=== PATIENT | male | born 1935 | race Caucasian/White ===

== ENCOUNTER 2017-05-28 11:14 | Inpatient (IN) ==
[2017-05-28] MEDS ORDERED: TYLENOL PO PRN (12:46)
[2017-05-28] MEDS ORDERED: LASIX IV ONE (12:46)
[2017-05-28] MEDS ORDERED: ZOFRAN IV PRN (12:46)
[2017-05-28] MEDS: LOVENOX SUBQ SCH (13:35)
--- NOTE | 2017-05-28 13:50 | Diag Imaging Result Doc PS360 ---
EXAM: CHEST-2 VIEWS INDICATION: CHF TECHNIQUE: 2 views COMPARISON: 01/30/2015 FINDINGS: There is evidence of prior granulomatous disease, stable. There is interstitial thickening throughout both lungs and especially at the lung apices that is stable, most compatible with fibrosis. There is stable blunting of the left costophrenic angle suggesting chronic pleural thickening. There is probably a component of COPD as well but stable. Cardiac silhouette is borderline prominent but stable. IMPRESSION: Stable chronic appearing interstitial thickening and biapical fibrosis and likely COPD. Electronically signed by Pranav Caldwell 05/28/2017 1:48 PM
[2017-05-28 13:51] LABS: HEMATOCRIT 32.9 % (42.0-52.0); HEMOGLOBIN 10.8 g/dL (14.0-18.0); MCH 33.5 PG (27-31); MCHC 32.8 g/dL (33-37); MCV 102.2 FL (81-99); MPV 9.7 FL (7.4-10.4); RBC 3.22 XMIL (4.7-6.1)
[2017-05-28] MEDS: DUONEB (A & A) INH SCH ×2 (16:24→19:09)
--- NOTE | 2017-05-28 18:19 | ECHO REPORT ---
ORDER DATE: 05/28/2017 MEASUREMENTS: 1. Left ventricular end-diastolic diameter 5.3. 2. End systolic diameter 3.3. 3. Posterior wall thickness 1. 4. Septal thickness 1.1. 5. Left atrium 5.2. 6. Aortic root 3.4 SUMMARY: 1. Fair quality study. 2. Aortic valve is trileaflet and opens normally on 2-dimensional images. There is mild mitral annular calcification. Mild mitral regurgitation is demonstrated. Tricuspid and pulmonic valves are without structural abnormality with mild to moderate tricuspid regurgitation and trace pulmonic insufficiency. Estimated systolic PA pressure by Doppler is 65 mmHg. The aortic root is normal size. 3. Normal left ventricular dimensions demonstrated. Estimated left ejection fraction appears to be at least 65%. There is abnormal septal motion, probably related to underlying interventricular conduction abnormality. Moderate biatrial enlargement is demonstrated. The right ventricle is of normal size with grossly preserved right ventricular systolic function. 4. No pericardial effusion. 5. Appearance of inferior vena cava suggests normal central venous pressure. CONCLUSIONS: 1. Mild mitral regurgitation. 2. Mild to moderate tricuspid regurgitation with pulmonary hypertension suggested by Doppler and estimated systolic PA pressure 65 mmHg. 3. Estimated left ejection fraction at least 65%. 4. Moderate biatrial enlargement. cc: MD Samson Hubbard MD
[2017-05-28] MEDS: PLETAL PO SCH (20:59)
[2017-05-28] MEDS ORDERED: SPIRIVA INH SCH (21:00)
[2017-05-29] MEDS: DUONEB (A & A) INH SCH ×4 (03:50→20:08)
[2017-05-29 05:40] LABS: CALCIUM 8.7 mg/dL (8.8-10.2)
[2017-05-29] MEDS ORDERED: LASIX IV ONE (07:57)
--- NOTE | 2017-05-29 08:26 | PROGRESS NOTE ---
DATE: 05/29/2017 SUBJECTIVE: Mr. Rosen was admitted to [facility] with acute on chronic congestive heart failure secondary to diastolic dysfunction. His echocardiogram demonstrated normal LV function with an EF of 65%. Mild mitral regurgitation and diastolic dysfunction. He is breathing much more comfortably. This morning, he put out nearly 2 L of fluid after 1 dosage of Lasix. He is maintaining O2 saturations of 96-99% on room air. He still has a nocturnal cough but less peripheral edema. OBJECTIVE: Vital signs: Temperature 98.3 degrees, pulse 90, respiratory rate 26, BP 1129/70. Cardiovascular: Regular rate and rhythm. Lungs: Distant breath sounds with increased period of expiration. There are fine crackles in the bases bilaterally. Abdomen: Soft, nontender, with active bowel sounds. Extremities: Trace pitting edema. LABORATORY DATA: BMP demonstrated the following: Sodium 144, potassium 4.0, chloride 104, BUN 24, creatinine 1.3 and glucose of 115. Cardiac enzymes were normal. ASSESSMENT AND PLAN: 1. Acute on chronic congestive heart failure secondary to diastolic dysfunction. We will continue a salt and fluid restricted diet. I will give him another 1 time dosage of Lasix 40 mg IV daily. We will arrange for continuous O2 saturation monitoring while sleeping tonight to make sure that he is not desaturating while sleeping, where he would potentially benefit from nocturnal home oxygen. 2. Chronic chronic obstructive pulmonary disease. We will continue Spiriva hand inhalers and we will make arrangements for him to have a nebulizer machine as well as DuoNeb nebulizer treatments at home. cc: Samson Gutierrez MD
[2017-05-29] MEDS: KLOR-CON PO SCH (08:59)
[2017-05-29] MEDS: PRAVACHOL PO SCH (08:59)
[2017-05-29] MEDS: PLETAL PO SCH ×2 (09:00→20:53)
[2017-05-29] MEDS: FLOMAX PO SCH (09:00)
[2017-05-29] MEDS ORDERED: LOPRESSOR PO SCH (09:00)
[2017-05-29] MEDS: ZYLOPRIM PO SCH (09:01)
[2017-05-29] MEDS: LOVENOX SUBQ SCH (12:47)
--- NOTE | 2017-05-29 13:31 | Diag Imaging Result Doc PS360 ---
ANGIOGRAM/AORTA W/RUNOFF - 05/29/2017 INDICATION: claudication TECHNIQUE: Axial CT images were obtained after administering intravenous contrast. Three-dimensional angiographic images were generated. A CT dose reduction protocol was used. COMPARISON: None FINDINGS: There is some interstitial infiltrate/edema in the lung bases. There is also a small left pleural effusion. There is cardiomegaly. There is moderate COPD. There is reflux of contrast into the IVC and hepatic veins consistent with cardiac insufficiency. There is moderate vascular disease of the abdominal aorta with calcification but no significant stenosis or aneurysm. The renal and mesenteric arteries are grossly patent. On the right side, there is some mild to moderate stenosis of about 50% at the external iliac artery. There is mild stenosis of less than 30% at the common femoral artery. Most of the superficial femoral artery is patent. However there is severe stenosis of the popliteal artery with about 70% narrowing. This is at the proximal popliteal artery. There is a three-vessel runoff to the right foot.There is severe degeneration at the right first metatarsophalangeal joint. On the left side, there is mild stenosis of about 40% at the common and external iliac arteries. The common and deep femoral arteries are grossly patent. At the distal superficial femoral artery, there is a focal critical stenosis of about 90% narrowing. There is also moderately severe stenosis throughout the popliteal artery with about 70% narrowing. There is a three-vessel runoff to the left foot. There is moderate bilateral pedal edema. IMPRESSION: 1. Severe peripheral artery disease, worst at the distal left superficial femoral artery and both popliteal arteries. There is also some mild inflow disease. 2. Cardiomegaly, pulmonary edema, COPD, trace left pleural effusion. Electronically signed by Logan Hoang 05/29/2017 1:29 PM
[2017-05-30] MEDS: DUONEB (A & A) INH SCH (05:20)
[2017-05-30 05:54] LABS: CALCIUM 8.8 mg/dL (8.8-10.2); POTASSIUM 3.9 mmol/L (3.5-5.1)
[2017-05-30] MEDS ORDERED: PREVNAR 13 IM ONE (07:31)
[2017-05-30] MEDS ORDERED: LASIX PO PRN (07:34)
[2017-05-30 08:23] VITALS: BP 129/53
[2017-05-30] MEDS ORDERED: CARDIZEM PO SCH (09:00)
[2017-05-30] MEDS: ZYLOPRIM PO SCH (09:43)
[2017-05-30] MEDS: FLOMAX PO SCH (09:43)
[2017-05-30] MEDS: PRAVACHOL PO SCH (09:43)
[2017-05-30] MEDS: KLOR-CON PO SCH (09:43)
[2017-05-30] MEDS: PLETAL PO SCH (09:43)
[2017-05-30] MEDS ORDERED: ATROVENT NEB INH SCH (15:30)
--- NOTE | 2017-05-30 17:13 | DISCHARGE SUMMARY ---
ADMISSION DATE: 05/28/2017 DISCHARGE DATE: 05/30/2017 DISCHARGE DIAGNOSES: 1. Acute on chronic congestive heart failure secondary to diastolic congestive heart failure. 2. Acute chronic obstructive pulmonary disease exacerbation. 3. Nicotine dependence with nicotine induced disorder. 4. Chronic renal disease stage 2. 5. Intermittent claudication of the lower extremities secondary to peripheral arterial disease. 6. Mixed hyperlipidemia. 7. Benign prostatic hypertrophy. DISCHARGE INSTRUCTIONS: 1. Return to clinic in 1 week to see me, Dr. Bright Gutierrez, in anticipation of a transition of care visit. 2. Activity as tolerated. 3. Healthy heart diet. MEDICATIONS: Allopurinol 300 mg daily. Pletal 100 mg b.i.d. Diltiazem 30 mg p.o. t.i.d. Lasix 40 mg daily on a p.r.n. basis if he gains 2 pounds in a period of 24 hours. Ipratropium nebulized t.i.d. KCl 20 mEq daily if he takes a Lasix. Flomax 0.4 mg daily. Spiriva 1 inhalation daily. Lasix 40 mg daily if he gains 2 pounds in 24 hours. DISCHARGE PHYSICAL EXAMINATION: This is a well-developed, well-nourished, 81-year-old, gentleman in no apparent distress. He is afebrile. Pulse 105. Respiratory rate 18, BP 135/64. CV: Tachycardic, regular S1, S2. Lungs: Distant breath sounds with increased period of expiration. No wheezing was appreciated. Abdomen: Soft, nontender, with active bowel sounds. Extremities: Trace ankle edema. Mr. Pranav Rosen was admitted to [facility] with acute on chronic congestive heart failure secondary to diastolic dysfunction. His initial proBNP was 3971. The patient was placed on a salt and fluid restricted diet and was diuresed with Lasix. An echocardiogram demonstrated normal LV function with an EF of 65%. He had moderate biatrial enlargement. He had mild mitral regurgitation. The patient responded to salt and fluid restrictions as well as diuresis with Lasix. Because metoprolol can cause bronchospasm, I switched him to Cardizem 30 mg t.i.d. to improve compliance of his cardiac muscle. We did perform an overnight sat monitor and he never had O2 sats below 90%. Given his acute chronic obstructive pulmonary disease exacerbation we continued the Spiriva but added DuoNeb nebulizer treatments. The DuoNeb nebulizer treatments made him extremely jittery and caused tachycardia. We changed his nebulizer treatments to ipratropium nebulized t.i.d. in the hopes it would continue to help his breathing without causing anxiety. He was also administered a Prevnar vaccination on discharge. He will continue a salt and fluid restricted diet. I asked him to weigh daily. He will take the Lasix only if he gains 2 pounds in 24 hours. He does have a history of intermittent claudication secondary to peripheral arterial disease. He has been taking Pletal [address] Ramos had held his diuretics in order to improve his creatinine. His creatinine dropped from 1.7-1.3. A CT angiogram of the aorta with runoff demonstrated severe peripheral artery disease worst at the distal left superficial femoral artery and both popliteal arteries. Dr. Ramos saw him and felt that he would be a candidate for an atherectomy as an outpatient. Mr. Rosen will follow up with Dr. Ramos in a week in order to schedule that procedure. He does have a longstanding history of chronic renal insufficiency. His creatinine typically runs from 1.2-1.4. His creatinine jumped to 1.[address] runoff. We will recheck a BMP next week. I am hoping that by only giving Lasix on an as-needed basis that we will not exacerbate his underlying renal disease. Having reached maximum hospital benefit, the patient was discharged in stable condition. cc: Samson Gutierrez MD
== END 2017-05-30 10:52 | disposition home or self-care (01) ==
LOC: DIRADM 11:14 → 3S 12:30
PROVIDERS: ADMIT Internal Medicine; ATTEND Internal Medicine

== ENCOUNTER 2017-06-04 15:08 | Inpatient (IN) ==
[2017-06-04] MEDS ORDERED: TYLENOL PO PRN (16:40)
[2017-06-04] MEDS ORDERED: KLOR-CON PO PRN (16:40)
[2017-06-04] MEDS ORDERED: ZOFRAN IV PRN (16:40)
--- NOTE | 2017-06-04 16:57 | Diag Imaging Result Doc PS360 ---
EXAM: CHEST-PORTABLE INDICATION: CHF TECHNIQUE: One view COMPARISON: 05/28/2017 FINDINGS: The bilateral interstitial thickening seen previously is approximately stable most compatible with fibrosis. There may also be a component of mild interstitial edema. There is no new consolidation. Cardiac silhouette is stable. IMPRESSION: Essentially stable chest. Electronically signed by Pranav Caldwell 06/04/2017 4:55 PM
[2017-06-04] MEDS ORDERED: CARDIZEM PO SCH (17:00)
[2017-06-04] MEDS: LEVAQUIN 250 MG/D5W 250 MG/50 ML IVPB IV SCH (17:43)
[2017-06-04] MEDS: LOVENOX SUBQ SCH (17:43)
[2017-06-04 17:47] LABS: MANUAL DIFF NEEDED? NO
[2017-06-04 17:50] LABS: BASO% 0.1 % (0.0-0.8); EOS# 0.01 X1000 (0.0-0.7); EOS% 0.1 % (0.0-10.0); HEMATOCRIT 29.7 % (42.0-52.0); HEMOGLOBIN 9.9 g/dL (14.0-18.0); IMM GRAN# 0.04 X1000 (0.0-0.04); IMM GRAN% 0.5 % (0.0-0.5); LYMPH# 0.53 X1000 (1.2-3.4); LYMPH% 6.7 % (20.5-51.1); MCH 32.7 PG (27-31); MCHC 33.3 g/dL (33-37); MONO# 1.09 X1000 (0.11-0.59); MONO% 13.7 % (1.7-9.3); MPV 9.7 FL (7.4-10.4); NEUT% 78.9 % (42.2-75.2); PLT 295 X1000 (130-400); RBC 3.03 XMIL (4.7-6.1)
--- NOTE | 2017-06-04 17:53 | Diag Imaging Result Doc PS360 ---
EXAM: HEAD W/O CONTRAST TECHNIQUE: Dose reduction protocol was used. INDICATION: AMS COMPARISON: None. FINDINGS: There is patchy low attenuation in the periventricular and subcortical white matter suggesting mild to moderate microangiopathy. There is no definite acute infarct given the limited sensitivity of CT versus MRI. There is no discrete intracranial mass, mass effect, or intracranial hemorrhage. There is subtotal opacification of the left sphenoid sinus and mild right maxillary sinus mucosal thickening. Surrounding soft tissues and bony structures are essentially unremarkable, otherwise. IMPRESSION: Mild to moderate chronic appearing white matter changes. No evidence of acute intracranial pathology. Electronically signed by Pranav Caldwell 06/04/2017 5:51 PM
[2017-06-04 18:10] LABS: ALBUMIN 3.5 g/dL (3.5-5.0); CALCIUM 9.2 mg/dL (8.8-10.2); POTASSIUM 3.6 mmol/L (3.5-5.1); TOTAL BILIRUBIN 0.55 mg/dL (0.20-1.00); TOTAL PROTEIN 7.8 g/dL (6.3-8.3); URIC ACID 4.8 mg/dL (3.4-7.0)
[2017-06-04] MEDS ORDERED: LASIX IV ONE (19:22)
[2017-06-04] MEDS ORDERED: KLOR-CON PO ONE (19:27)
[2017-06-04 20:08] LABS: URINE CULTURE NEEDED? NO; URINE MICRO REVIEW NEEDED? NO; URINE SOURCE CLEAN CATCH
[2017-06-04 20:11] LABS: BILIRUBIN URINE NEGATIVE (NEGATIVE); BLOOD URINE NEGATIVE (NEGATIVE); COLOR YELLOW; GLUCOSE URINE NEGATIVE (NEGATIVE); LEUKOCYTES URINE NEGATIVE (NEGATIVE); NITRITE URINE NEGATIVE (NEGATIVE); PH URINE 5.5; PROTEIN URINE TRACE mg/dL (NEGATIVE); SP GRAVITY URINE 1.012; TURBIDITY URINE CLEAR (CLEAR); UROBILINOGEN URINE NORMAL (NORMAL)
[2017-06-04 20:12] LABS: UR EPITHELIAL CELLS <10 /HPF (<10); URINE BACTERIA NEGATIVE /HPF; URINE RBC <10 /HPF (<10); URINE WBC <10 /HPF (<10)
[2017-06-04] MEDS ORDERED: CARDIZEM PO ONE (21:00)
[2017-06-04] MEDS: PLETAL PO SCH (21:02)
[2017-06-05] MEDS ORDERED: CARDIZEM PO ONE (04:25)
--- NOTE | 2017-06-05 05:35 | EKG Report ---
Test Performed on : 06/05/2017 04:21:51 AM Test Reason : Elevated heart rate Blood Pressure : / mmHG Vent. Rate : 138 BPM Atrial Rate : 138 BPM P-R Int : 000 ms QRS Dur : 124 ms QT Int : 356 ms P-R-T Axes : 000 032 209 degrees QTc Int : 539 ms Wide QRS tachycardia. Anterior infarct , age undetermined ST \T\ T wave abnormality, consider inferior ischemia Abnormal ECG When compared with ECG of 04-JUN-2017 18:59, (Unconfirmed) Wide QRS tachycardia. has replaced Sinus rhythm. Confirmed by Matt MANDEL, MJoel Novoa ([id number]) on 06/05/2017 1:07:25 PM
--- NOTE | 2017-06-05 05:36 | EKG Report ---
Test Performed on : 06/04/2017 5:55:49 PM Test Reason : palpitations Blood Pressure : / mmHG Vent. Rate : 118 BPM Atrial Rate : 118 BPM P-R Int : 168 ms QRS Dur : 130 ms QT Int : 374 ms P-R-T Axes : 000 -57 090 degrees QTc Int : 524 ms Sinus tachycardia. Left axis deviation Left bundle branch block Abnormal ECG When compared with ECG of 30-JAN-2011 08:36, Sinus rhythm. has replaced Atrial fibrillation. Confirmed by Samson Gutierrez MD ([id number]) on 06/05/2017 1:07:06 PM
[2017-06-05 06:16] LABS: CALCIUM 8.9 mg/dL (8.8-10.2); POTASSIUM 3.4 mmol/L (3.5-5.1)
[2017-06-05] MEDS ORDERED: NS 1,000 ML IV SCH (08:34)
[2017-06-05] MEDS ORDERED: CARDIZEM PO SCH (09:00)
--- NOTE | 2017-06-05 09:05 | PROGRESS NOTE ---
DATE: 06/05/2017 SUBJECTIVE: Ms. Rosen has a long-standing history of severe COPD and chronic congestive heart failure secondary to diastolic dysfunction. He presented to my office with dyspnea, worsening shortness of breath with exertion, and peripheral edema. He had been taking extra Lasix without improvement in his swelling. The patient is still with complaint of mild dyspnea. He has been tachycardic throughout the night. He has been in a sinus tachycardia with PACs. We have not seen any recurrence of atrial flutter or atrial fibrillation. He does have a history of paroxysmal atrial fibrillation. He denies any chest pain, tightness, or pressure in his chest, or other anginal equivalents. His initial CPK was 48, his troponin was 0.01. His EKG showed T-wave inversion inferiorly. His chest x-ray showed no evidence of interstitial edema and significant pulmonary fibrosis. He does have a history of chronic renal insufficiency. His baseline creatinine is in the range of 1.2-1.3. His creatinine was 1.6 this morning. He is not voiding very much. He has had 820 mL of urine output since admission. OBJECTIVE: Vital Signs: Temperature 99.4 degrees, pulse 108, respiratory rate 20, BP 134/60. General: He is awake and easily arousable. He is oriented to name, place, and time. CV: Tachycardic, regular S1 and S2. Lungs: Scattered end-expiratory wheezing with forced expiration. He has distant breath sounds with increased period of expiration. Abdomen: Soft, nontender, with active bowel sounds. Extremities: There is 2+ pitting edema in the lower extremities bilaterally. ASSESSMENT AND PLAN: 1. Acute on chronic renal failure. He has a baseline creatinine of 1.2-1.3. I am going to check an ultrasound of the kidneys to make sure there is no evidence of hydronephrosis. I will cautiously give him fluid in that his chest x-ray does not show any overt heart failure at this time. We will consult Dr. Bates to see him in consultation. 2. Acute chronic obstructive pulmonary disease exacerbation. We will treat him with supplemental O2, Spiriva hand inhaler, intravenous Solu-Medrol, and we will use ipratropium nebulizers 3 times daily. 3. Persistent tachycardia. He has had a Myoview GXT in the past. We will check serial cardiac enzymes. I am going to consult cardiology. We will recheck electrolytes and thyroid studies today. Given the dyspnea, we will probably do a V/Q scan to make sure that there has been no blood clot to the lungs. cc: Samson Gutierrez MD
[2017-06-05] MEDS: PLETAL PO SCH ×2 (09:07→20:31)
[2017-06-05] MEDS: FLOMAX PO SCH (09:07)
[2017-06-05] MEDS: SOLU-MEDROL IV SCH ×2 (09:07→17:07)
[2017-06-05] MEDS: ZYLOPRIM PO SCH (09:07)
--- NOTE | 2017-06-05 10:42 | EKG Report ---
Test Performed on : 06/04/2017 6:59:59 PM Test Reason : CIC5 Blood Pressure : / mmHG Vent. Rate : 119 BPM Atrial Rate : 119 BPM P-R Int : 136 ms QRS Dur : 128 ms QT Int : 400 ms P-R-T Axes : 000 035 098 degrees QTc Int : 562 ms Sinus tachycardia. Nonspecific intraventricular block Abnormal QRS-T angle, consider primary T wave abnormality Abnormal ECG When compared with ECG of 04-JUN-2017 17:55, (Unconfirmed) QRS axis shifted right QRS voltage has decreased Non-specific change in ST segment in Inferior leads Nonspecific T wave abnormality now evident in Inferior leads Confirmed by Matt MANDEL, Samson Novoa ([id number]) on 06/05/2017 1:07:13 PM
--- NOTE | 2017-06-05 11:47 | Diag Imaging Result Doc PS360 ---
EXAM: US RENAL 2 (RETROPER) COMPLETE HISTORY: ACUTE RENAL FAILURE TECHNIQUE: Renal ultrasound transabdominal COMMENT: The urinary bladder is unremarkable in appearance. The right kidney is 12.4 x 5.3 x 7 cm the left is 11.1 x 4.7 x 5.2 cm. No mass or hydronephrosis is present and there is no evidence of stones. IMPRESSION: No evidence of obstructive uropathy. Electronically signed by Erwin Saha 06/05/2017 11:44 AM
[2017-06-05] MEDS: CARDIZEM PO SCH ×2 (14:50→20:31)
[2017-06-05] MEDS: LEVAQUIN 250 MG/D5W 250 MG/50 ML IVPB IV SCH (17:07)
[2017-06-05] MEDS: LOVENOX SUBQ SCH (17:07)
[2017-06-05] MEDS: SPIRIVA INH SCH ×2 (20:05→21:00)
[2017-06-05] MEDS: DESYREL PO PRN (22:57)
[2017-06-06] MEDS: SOLU-MEDROL IV SCH ×3 (00:04→20:34)
[2017-06-06 05:36] LABS: CALCIUM 8.4 mg/dL (8.8-10.2); POTASSIUM 3.8 mmol/L (3.5-5.1)
[2017-06-06] MEDS: ZYLOPRIM PO SCH (08:06)
[2017-06-06] MEDS: CARDIZEM PO SCH ×3 (08:06→20:34)
[2017-06-06] MEDS: PLETAL PO SCH ×2 (08:06→20:33)
[2017-06-06] MEDS: FLOMAX PO SCH (08:06)
[2017-06-06] MEDS ORDERED: NS 1,000 ML IV SCH (08:23)
[2017-06-06] MEDS ORDERED: DULCOLAX PR PRN (08:24)
[2017-06-06] MEDS: COLCRYS PO SCH ×3 (08:47→20:33)
--- NOTE | 2017-06-06 12:49 | PROGRESS NOTE ---
DATE: 06/06/2017 SUBJECTIVE: Mr. Monaco was admitted to [facility] with acute COPD exacerbation. PA and lateral chest x-ray demonstrates severe pulmonary fibrosis and chronic changes associated with COPD. No pleural effusions or interstitial edema were noted. We continued him on the Spiriva, ipratropium nebulizer treatments and added IV Solu-Medrol. He is breathing more comfortably. He is maintaining O2 saturations of 96%-97% on room air. He denies any chest pain, palpitations, or anginal equivalents. He has a history of chronic renal failure. He was admitted with acute-on- chronic renal failure. We have cautiously given him a L of fluid yesterday. Creatinine has dropped from 1.6 to 1.4. His baseline creatinine is 1.1-1.2. He had urine output of approximately 1050 mL yesterday. He is with complaint of constipation. He has not had a bowel movement in several days. He has decreased redness, erythema, and swelling in the left lower leg. He has had no fever or chills. The swelling and pain of the proximal joints of the 3rd and 4th fingers has diminished. He has increased range of motion in that hand. OBJECTIVE: Temperature 97.8 degrees, pulse 106, respirations 18, BP 147/71. CV tachycardic. Regular S1, S2. Lungs: Distant breath sounds with increased period of expiration. No wheezing was noted. Abdomen soft, nontender, with active bowel sounds. Extremities. He has diminished edema in the lower extremities bilaterally. The erythema and warmth in the left lower leg continues to improve. Musculoskeletal. He still has some swelling of the proximal interphalangeal joints on the left hand. ASSESSMENT AND PLAN: 1. Acute chronic obstructive pulmonary disease exacerbation. We will continue Spiriva 1 inhalation daily and taper down on the steroids to 40 mg IV q.12 hours and continue ipratropium nebulizer treatments. 2. [id number] renal failure. We will give him an additional liter of normal saline and recheck a BMP in the morning. He appears to be mildly volume depleted. 3. Cellulitis of the left lower extremity. His left leg continues to improve. We will continue IV Levaquin. 4. Constipation. I will give him Dulcolax suppositories q.6 hours p.r.n. constipation. 5. Acute tenosynovitis and acute gout. We will continue the allopurinol but I will add colchicine 0.6 mg q.6 hours until swelling resolves or diarrhea develops whichever comes 1st. 6. General debility. We will consult physical therapy for evaluation. cc: Samson Gutierrez MD
[2017-06-06] MEDS: LEVAQUIN 250 MG/D5W 250 MG/50 ML IVPB IV SCH (15:58)
[2017-06-06] MEDS: LOVENOX SUBQ SCH (15:58)
[2017-06-06] MEDS: SPIRIVA INH SCH (21:00)
[2017-06-07] MEDS: COLCRYS PO SCH ×4 (03:15→21:01)
[2017-06-07 05:11] LABS: HEMATOCRIT 29.7 % (42.0-52.0); MCH 33.4 PG (27-31); MCHC 33.7 g/dL (33-37); MCV 99.3 FL (81-99); MPV 10.2 FL (7.4-10.4); RBC 2.99 XMIL (4.7-6.1)
[2017-06-07 05:24] LABS: POTASSIUM 3.5 mmol/L (3.5-5.1)
[2017-06-07] MEDS ORDERED: LASIX IV ONE (08:32)
[2017-06-07] MEDS ORDERED: SALINE LOCK IV FLUID XX ONE (08:33)
[2017-06-07] MEDS: CARDIZEM PO SCH ×3 (09:10→21:01)
[2017-06-07] MEDS: SOLU-MEDROL IV SCH ×2 (09:10→21:01)
[2017-06-07] MEDS: FLOMAX PO SCH (09:10)
[2017-06-07] MEDS: ZYLOPRIM PO SCH (09:11)
[2017-06-07] MEDS: PLETAL PO SCH ×2 (09:11→21:01)
--- NOTE | 2017-06-07 09:14 | PROGRESS NOTE ---
DATE: 06/07/2017 SUBJECTIVE: Mr. Rosen has a history of acute on chronic renal failure. Creatinine has dropped from 1.6-1.4 with gentle fluid resuscitation. The pain and swelling in his left hand has improved significantly on the colchicine. He has not had any diarrhea secondary to the colchicine. The erythema, swelling, and redness have greatly improved in the left lower extremity. He is breathing fairly comfortably. He has mild shortness of breath with ambulation. Chest x-ray showed severe pulmonary fibrosis. Unfortunately, he continues to smoke cigars as well as a half pack of cigarettes per day. He reports that he is feeling stronger and is making good progress with physical therapy. OBJECTIVE: Vital Signs: Temperature 98.1 degrees, pulse 106, respirations 16, BP 150/84. CV: Tachycardic. Regular S1, S2. Lungs: Fine crackles in the bases bilaterally. There are distant breath sounds with increased period of expiration. Abdomen: Soft, nontender, with active bowel sounds. Extremities: Trace pitting edema in the lower extremities bilaterally. Laboratory Data: Various laboratory studies were obtained. A CBC demonstrated a white count of 6.8, hemoglobin 10, hematocrit 29.7, and a platelet count of 370,000. Electrolytes demonstrated the following: Sodium 136, potassium 3.5, chloride 96, BUN 35, creatinine 1.4. ASSESSMENT AND PLAN: 1. Acute gouty exacerbation to the left hand. Clinically, he is better. We will continue colchicine on a as needed basis until swelling resolves or he develops diarrhea, whichever comes first. 2. Cellulitis of the left lower extremity. We will continue Levaquin 250 mg intravenous daily. Cultures are negative to this point in time. 3. Acute on chronic renal failure, mild volume depletion. Creatinine has improved to 1.4. He has a few crackles in his bases today. I am going to hold the fluid and give him a 1 time dosage of Lasix. 4. Acute chronic obstructive pulmonary disease exacerbation. We will continue Spiriva, ipratropium nebulizer treatments, and taper down on the intravenous steroids. cc: Samson Gutierrez MD
--- NOTE | 2017-06-07 09:37 | Diag Imaging Result Doc PS360 ---
EXAM: CHEST-2 VIEWS HISTORY: COPD TECHNIQUE: 06/04/2017 COMPARISON: None. FINDINGS: The lungs are well expanded. Mild increased AP diameter to the chest. The heart is not enlarged. Mild increased interstitial markings in the mid and lower lungs. No pleural effusions. There is right apical pleural thickening with fibrosis. IMPRESSION: Emphysema and fibrosis. There may be small underlying infiltrates. Electronically signed by Donald Horton 06/07/2017 9:35 AM
[2017-06-07] MEDS: LEVAQUIN 250 MG/D5W 250 MG/50 ML IVPB IV SCH ×2 (15:29→15:45)
[2017-06-07] MEDS: LOVENOX SUBQ SCH ×2 (15:30→15:45)
[2017-06-07] MEDS: SPIRIVA INH SCH (21:00)
[2017-06-08] MEDS: COLCRYS PO SCH ×3 (02:10→16:17)
[2017-06-08] MEDS: SOLU-MEDROL IV SCH ×2 (08:33→20:12)
[2017-06-08] MEDS: CARDIZEM PO SCH ×3 (08:33→20:12)
[2017-06-08] MEDS: FLOMAX PO SCH (08:33)
[2017-06-08] MEDS: ZYLOPRIM PO SCH (08:33)
[2017-06-08] MEDS: PLETAL PO SCH ×2 (08:33→20:12)
--- NOTE | 2017-06-08 12:41 | PROGRESS NOTE ---
DATE: 06/08/2017 SUBJECTIVE: Mr. Rosen was admitted to [facility] with an acute chronic obstructive pulmonary disease exacerbation. He continues to improve. He has been wearing oxygen at night, but not wearing oxygen during the day. He still has mild dyspnea with ambulation in the halls, but the degree of dyspnea continues to improve. His most recent chest x-ray demonstrates severe pulmonary fibrosis. He has continued to smoke a half pack of cigarettes per day. He has not smoked in 5 days and has had no withdrawal type symptoms. He has a minimal intermittent nonproductive cough. His renal function has stabilized at 1.4. He is voiding freely. The swelling and erythema and pain in the left hand have largely resolved. The swelling, erythema in the left lower leg have improved significantly. All cultures have been normal. OBJECTIVE: Vital Signs: Temperature 98.1 degrees, pulse 94, respirations 18, BP 142/85. Cardiovascular: Regular rate and rhythm. Lungs: Distant breath sounds with increased period of expiration. Abdomen: Soft, nontender, with active bowel sounds. ASSESSMENT AND PLAN: 1. Acute chronic obstructive pulmonary disease exacerbation. We will continue nocturnal oxygen. Ipratropium nebulized t.i.d. Spiriva inhalation daily and continue to taper IV Solu-Medrol. 2. Cellulitis of the left leg. Clinically, he is much better. We will continue IV Levaquin. 3. Acute on chronic renal failure. We have cautiously rehydrated him. I really do not want to give him additional fluids, which may tip him over into congestive heart failure. Creatinine is down to 1.4. He is voiding freely. 4. Acute gout of the left hand. Symptoms have improved dramatically on the colchicine. We will continue to increase his activity and wall him more frequently in the halls today to further assess his breathing with increased activity. If he does well, I hope to be able to send him home tomorrow with home health and physical therapy. cc: Samson Gutierrez MD
[2017-06-08] MEDS: LEVAQUIN 250 MG/D5W 250 MG/50 ML IVPB IV SCH (16:17)
[2017-06-08] MEDS: LOVENOX SUBQ SCH (16:17)
[2017-06-08] MEDS: SPIRIVA INH SCH (21:00)
[2017-06-09] MEDS: SOLU-MEDROL IV SCH ×2 (08:34→21:23)
[2017-06-09] MEDS: CARDIZEM PO SCH ×3 (08:34→21:23)
[2017-06-09] MEDS: FLOMAX PO SCH (08:34)
[2017-06-09] MEDS: ZYLOPRIM PO SCH (08:34)
[2017-06-09] MEDS: PLETAL PO SCH ×2 (08:35→21:23)
--- NOTE | 2017-06-09 09:02 | EKG Report ---
Test Performed on : 06/09/2017 00:03:36 AM Test Reason : Rhythm change Blood Pressure : / mmHG Vent. Rate : 115 BPM Atrial Rate : 144 BPM P-R Int : 000 ms QRS Dur : 134 ms QT Int : 374 ms P-R-T Axes : 000 -40 099 degrees QTc Int : 517 ms Undetermined rhythm Left axis deviation Left bundle branch block Abnormal ECG When compared with ECG of 05-JUN-2017 04:21, Current undetermined rhythm precludes rhythm comparison, needs review Unconfirmed Result
--- NOTE | 2017-06-09 10:01 | PROGRESS NOTE ---
DATE: 06/09/2017 SUBJECTIVE: Mr. Rosen continues to go in and out of atrial fibrillation. He has a history of paroxysmal atrial fibrillation. He went into atrial fibrillation with a heart rate of 147 last night. He remains in atrial fibrillation this morning. Heart rate is ranging from 110 to 120. He denies any chest pain, tightness, or pressure in his chest. He had an echocardiogram within the past 2 weeks which demonstrated no obvious significant valvular lesions. His LV function was preserved. He has ruled out for myocardial ischemia by serial enzymes. Thyroid studies have been within normal limits. He was admitted to [facility] with acute chronic obstructive pulmonary disease exacerbation. He is breathing fairly comfortably. He is wearing nocturnal oxygen. He is maintaining O2 saturations of 93-95% on room air during the day. He denies any PND, orthopnea, or increasing peripheral edema. A chest x-ray demonstrated diffuse pulmonary fibrosis. PHYSICAL EXAMINATION: Vital Signs: Temperature 98 degrees, pulse 116 and irregular, respiratory rate 20, BP 129/53. CV: Irregularly irregular. Lungs: Distant breath sounds with increased period of expiration. Abdomen: Soft, nontender, with active bowel sounds. Extremities: Trace ankle edema. ASSESSMENT AND PLAN: 1. Paroxysmal atrial fibrillation. He has converted back into atrial fibrillation. His heart rate is ranging from 95 to 116. He had a heart rate of 147 early this morning. He has no previous history of rheumatic heart fever. I am going to begin Xarelto 15 mg twice a day. I am going to increase his Cardizem to 60 mg every 6 hours. Given the fact that he is going in and out of atrial fibrillation, I believe that he potentially would benefit from an antiarrhythmic. I am worried about the use of antiarrhythmics such as Multaq or amiodarone due to his severe pre-existing pulmonary fibrosis and chronic obstructive pulmonary disease. I do not know if he would be a candidate for sotalol. I will consult cardiology for further evaluation. 2. Chronic obstructive pulmonary disease. We will continue Spiriva 1 inhalation daily, ipratropium nebulized three times a day, and intravenous Solu-Medrol. cc: Samson Gutierrez MD
[2017-06-09] MEDS: LOVENOX SUBQ SCH (10:06)
--- NOTE | 2017-06-09 12:44 | CONSULTATION ---
DATE OF CONSULTATION: 06/09/2017 INDICATION: Atrial fibrillation, diastolic heart failure. HISTORY OF PRESENT ILLNESS: Mr. Rosen is an 81-year-old, white male with a history of paroxysmal atrial fibrillation, diastolic heart failure as well as peripheral arterial disease who presented on the . He apparently had an admission just a few days prior to that related to peripheral arterial disease and potential renal insufficiency. He apparently was discharged home and over the next couple of days developed a significant amount of peripheral edema and re-presented for evaluation. Since that time, he says his edema has improved markedly. However, it his stay has been complicated by atrial fibrillation with rapid ventricular response. Rates have been as high as in the 140s last night. Presently, he appears to be in the low 100s. He is not having any heart racing. He does note some trouble with some weakness with ambulation around the room, but notes that his peripheral arterial disease symptom has predominantly been leg weakness and he is unclear if this is significantly worse recently. He denies any heart racing or any chest pain. He has not had any episodes of orthopnea. PAST MEDICAL HISTORY: 1. Paroxysmal atrial fibrillation that was documented on an EKG as far back as January 2011. 2. Diastolic heart failure. 3. Severe peripheral arterial disease. 4. COPD. 5. Chronic renal insufficiency with baseline creatinine's in the mid 1's. 6. Hyperlipidemia. 7. History of back surgery. SOCIAL HISTORY: He smokes a pipe daily. No alcohol. He is and his is present in the room with him today. FAMILY HISTORY: Significant for father passing away at age 72 with a history of stroke as well as hypertension, mother passing away at age 53 with a history of myocardial infarction. He has a sibling with lymphoma. REVIEW OF SYSTEMS: A 10 system review of systems is negative except for those mentioned in HPI. PHYSICAL EXAMINATION: Vital signs: Afebrile. Heart rates more recently have been in the low 100s-110s. Blood pressure 120/68. General: No acute distress. HEENT: Oropharynx is moist. Normal dentition. Eye examination is pink conjunctivae, white sclerae. Neck: Examination shows no obvious thyromegaly or thyroid tenderness. Cardiovascular: He is in a irregular rhythm with a tachycardic rate. He has 1+ lower extremity edema in the lower 1/3 of his legs Chest: His chest exam is relatively clear. He has no expiratory wheezes. No increased work of breathing. Abdomen: Soft, nontender, nondistended. He has no obvious organomegaly. Skin: Warm and dry throughout without any rashes. Neurological: Moving all extremities well. No obvious lateralizing deficits. No sensation deficits. Psychiatric: Alert and oriented, pleasant. Normal mood and affect. PERTINENT DATA: He had an EKG performed on the at 1755. This appeared to show sinus rhythm with a left bundle branch block. Subsequent EKG at 1859 that day again appeared to show sinus rhythm with what appeared to be a left bundle branch block. EKG on the at 0421, P waves are somewhat difficult identify in this study, but appear to be likely atrial fibrillation with a left bundle branch block. His most recent EKG this morning at 0405 shows atrial fibrillation, left bundle branch block, rate of 120 beats per minute. He had an echo on the demonstrating an EF of 65%, mild to moderate TR, RV systolic pressure of 65, moderate biatrial enlargement. His white count is 6.8, hematocrit 29.7, platelet count 370,000. Sodium is 136, potassium 3.5. His BUN is 35. Creatinine is 1.4. His proBNP yesterday was 3209, negative cardiac enzymes. TSH was 1.29. ASSESSMENT: 1. Paroxysmal atrial fibrillation. 2. Diastolic heart failure. PLAN: I will add in metoprolol at a dose of 25 mg b.i.d. The patient does not seem particularly symptomatic at this point, so I would likely try to achieve a rate control plan in this patient. He is not having any bleeding issues or falls, but he does have a relatively low hematocrit. I would trend this presently and consider changeover to a chronic oral anticoagulant in the future. He does have a significantly elevated [id number] score of 5, giving him a yearly stroke risk of 6.7%, which would qualify him for anticoagulation. Based on his renal dysfunction and his creatinines which seem to be very frequently 1.6 or above as well as his age of 81, I would likely use Eliquis at a dose of 2.5 b.i.d. Again, we will continue on the diltiazem at the current dose, add in metoprolol 25 twice a day and monitor his heart rates. I have started him on oral Lasix at 40 mg daily, and we will follow his creatinines based on that. I would likely ovoid an anticoagulant right now considering his history of renal dysfunction as well as heart failure and lung issues. cc: MD Samson Mares MD
[2017-06-09] MEDS: LASIX PO SCH (13:20)
[2017-06-09] MEDS: LEVAQUIN 250 MG/D5W 250 MG/50 ML IVPB IV SCH (16:37)
[2017-06-09] MEDS: SPIRIVA INH SCH (20:03)
[2017-06-09] MEDS ORDERED: LOPRESSOR PO SCH (21:00)
[2017-06-10] MEDS: CARDIZEM PO SCH ×4 (03:22→20:54)
--- NOTE | 2017-06-10 08:26 | PROGRESS NOTE ---
DATE: 06/10/2017 SUBJECTIVE: Mr. Rosen reports he has been doing well overnight. PHYSICAL EXAMINATION: Vital signs: Afebrile. Heart rates continued to be in the low 100s to 110s. His blood pressure is 140/68. His I's and O's thus far have been positive at 1.8 L over the course of the hospitalization. General: In no acute distress. Cardiovascular: He is in an irregularly irregular rhythm. This is consistent with atrial fibrillation with a rate of the low 100s presently. He has 1+ lower extremity edema up to mid calf. Chest: Exam is clear to auscultation bilaterally. No increased work of breathing. Abdomen: Soft, nontender, nondistended. No obvious organomegaly. Skin: Warm and dry throughout without any rashes. LABORATORY DATA: No current labs presently. ASSESSMENT: 1. Atrial fibrillation. 2. Diastolic heart failure. PLAN: I will increase his metoprolol to 50 mg b.i.d. Plan on transesophageal echocardiogram and cardioversion likely tomorrow. For now, we will continue him on the and the increased dose of the metoprolol. He is on enoxaparin at treatment dose presently. cc: MD Samson Mares MD
[2017-06-10] MEDS: FLOMAX PO SCH (09:03)
[2017-06-10] MEDS: LOPRESSOR PO SCH ×2 (09:04→20:54)
[2017-06-10] MEDS: PLETAL PO SCH ×2 (09:04→20:52)
[2017-06-10] MEDS: SOLU-MEDROL IV SCH ×2 (09:04→20:54)
[2017-06-10] MEDS: LASIX PO SCH (09:04)
[2017-06-10] MEDS: ZYLOPRIM PO SCH (09:05)
[2017-06-10] MEDS: LOVENOX SUBQ SCH (10:04)
[2017-06-10 10:41] LABS: CALCIUM 8.8 mg/dL (8.8-10.2); POTASSIUM 3.8 mmol/L (3.5-5.1)
--- NOTE | 2017-06-10 14:43 | PROGRESS NOTE ---
DATE: 06/10/2017 Mr. Rosen has a history of paroxysmal atrial fibrillation. Unfortunately he remains in atrial fibrillation. His heart rate has been in the range of 100-110 during the night. He denies any chest pain, palpitations, or anginal equivalents. He is breathing comfortably. O2 saturations are ranging from 97-98% on room air. Temperature 97.9 degrees, pulse 110, respirations 20, BP 135/76.CV: Irregularly irregular. Lungs: Distant breath sounds with increased period of expiration. Abdomen: Soft, nontender, with active bowel sounds. Extremities: Trace ankle edema. ASSESSMENT AND PLAN: 1. Atrial fibrillation. He remains in atrial fibrillation. Heart rate is ranging from 100 to 110. Certainly the fact that he remains in atrial fibrillation will exacerbate his underlying diastolic dysfunction. His heart rate is still too high. Dr. Nazario increased the metoprolol to 50 mg b.i.d. I certainly agree that proceeding with a GENO and possible cardioversion tomorrow is a reasonable course of action. Given his severe pulmonary fibrosis he is not a great candidate for antiarrhythmic such as amiodarone. If cardioversion is unsuccessful I believe that he would be a great candidate for evaluation for ablation. 2. Acute on chronic congestive heart failure secondary to diastolic dysfunction. He does appear to be mildly volume depleted. We will continue nocturnal oxygen and titrate upward on the Cardizem and Toprol to increase cardiac compliance. We will diurese him as needed. cc: Samson Gutierrez MD
[2017-06-10] MEDS: LEVAQUIN 250 MG/D5W 250 MG/50 ML IVPB IV SCH (17:14)
[2017-06-10] MEDS: SPIRIVA INH SCH (20:00)
[2017-06-11] MEDS: CARDIZEM PO SCH ×2 (03:40→08:12)
[2017-06-11 05:10] LABS: BASO% 0.1 % (0.0-0.8); HEMATOCRIT 28.1 % (42.0-52.0); HEMOGLOBIN 9.4 g/dL (14.0-18.0); IMM GRAN# 0.46 X1000 (0.0-0.04); IMM GRAN% 5.4 % (0.0-0.5); LYMPH% 3.5 % (20.5-51.1); MANUAL DIFF NEEDED? YES; MCH 32.8 PG (27-31); MCHC 33.5 g/dL (33-37); MCV 97.9 FL (81-99); MONO# 0.24 X1000 (0.11-0.59); MONO% 2.8 % (1.7-9.3); MPV 9.7 FL (7.4-10.4); NEUT% 88.2 % (42.2-75.2); PLT 402 X1000 (130-400); RBC 2.87 XMIL (4.7-6.1)
[2017-06-11 05:39] LABS: CALCIUM 8.2 mg/dL (8.8-10.2); MAGNESIUM 2.3 mg/dL (1.5-2.7); POTASSIUM 3.9 mmol/L (3.5-5.1)
[2017-06-11 06:07] LABS: LYMPHS 10 % (21-51); MONO 4 % (1-9)
[2017-06-11 06:08] LABS: HYPOCHROM OCCASIONAL; LARGE PLATELETS OCCASIONAL
[2017-06-11] MEDS: LOPRESSOR PO SCH ×2 (08:11→20:44)
[2017-06-11] MEDS: FLOMAX PO SCH (08:11)
[2017-06-11] MEDS: PLETAL PO SCH ×2 (08:11→20:45)
[2017-06-11] MEDS: PREDNISONE PO SCH (08:11)
[2017-06-11] MEDS: ZYLOPRIM PO SCH (08:11)
[2017-06-11 09:50] LABS: INR 1.1; PROTIME 11.6 Seconds (9.2-11.7); PTT 25.4 Seconds (22.0-36.0)
[2017-06-11] MEDS: LOVENOX SUBQ SCH (09:56)
[2017-06-11] MEDS ORDERED: SODIUM CHLORIDE 0.9% 10 ML ONE (10:36)
[2017-06-11] MEDS ORDERED: XYLOCAINE 4% TOPICAL SOLUTION ONE (10:37)
[2017-06-11] MEDS ORDERED: XYLOCAINE 2% VISCOUS ONE (10:37)
[2017-06-11] MEDS ORDERED: NS 1,000 ML ONE (10:50)
[2017-06-11] MEDS ORDERED: CLAVE TWINSITE 32 IN 11959 ONE (10:50)
[2017-06-11] MEDS ORDERED: ANESTHESIA PB SET 88 IN 5742 ONE (10:50)
[2017-06-11] MEDS ORDERED: DIPRIVAN 1% ONE (10:53)
--- NOTE | 2017-06-11 11:12 | PROGRESS NOTE ---
DATE: 06/11/2017 SUBJECTIVE: Mr. Rosen has a history of paroxysmal atrial fibrillation. He has remained in normal sinus rhythm for the majority of the night. He did have 1 or 2 short episodes of atrial fibrillation. His heart rate is ranging from 63 to 73. He denies any chest pain, palpitations, or anginal equivalents. He was admitted to [facility] with acute COPD exacerbation. We have treated him with Spiriva, IV Solu-Medrol and ipratropium nebulizer treatments. He is breathing much more comfortably. His O2 saturations are 97% on room air. OBJECTIVE: Vital Signs: Temperature 97.8 degrees, pulse 63, BP 130/68. CV: Regular rate and rhythm with occasional ectopy. Lungs: Distant breath sounds with increased period of expiration. Abdomen: Soft, nontender, with active bowel sounds. Extremities: Trace ankle edema. ASSESSMENT AND PLAN: 1. Paroxysmal atrial fibrillation. He has converted back to normal sinus rhythm. He has been scheduled for a transesophageal echocardiogram today. If the transesophageal echocardiogram is normal, I am hoping that we would be able to begin the Eliquis and discharge him home as long as he remains in sinus rhythm. If he converts back to atrial fibrillation then he will need cardioversion. 2. Acute chronic obstructive pulmonary disease exacerbation. We will continue Spiriva, ipratropium nebulizer treatments, and I will switch him to oral prednisone. cc: Samson Gutierrez MD
--- NOTE | 2017-06-11 11:37 | ECHO REPORT ---
ORDER DATE: 06/11/2017 PROCEDURE: Transesophageal echocardiogram prior to cardioversion. Informed consent was obtained from the patient. Intravenous access was already established. The patient was brought to the cardiac catheterization laboratory. The patient's oropharynx was anesthetized using lidocaine swish and swallow. Versed and propofol was given to anesthetize the patient. Anesthesia was present. Please see detailed Anesthesia records. A transesophageal probe was easily passed into the esophagus. Ultrasound pictures were obtained. There was no complications. FINDINGS: 1. Normal left ventricular cavity size. Estimated ejection fraction of 55-60%. 2. Aortic valve leaflets are mildly sclerosed. Pulmonic valve was normal. Tricuspid valve was normal. Mitral valve was normal. Left atrium was mildly enlarged. Left atrial appendage had smoke and clot was seen. 3. Right atrium was normal. 4. There was no aortic stenosis or regurgitation. There is mild mitral regurgitation. Mild tricuspid regurgitation. 5. Ascending aorta was normal. Descending aorta had layered plaque. CONCLUSIONS: 1. Normal left ventricular cavity size. Estimated ejection fraction of 55-60%. 2. Left atrium was enlarged. Left atrial appendage had smoke and a clot was noted. RECOMMENDATIONS: Patient has paroxysmal atrial fibrillation. Rate is under control. Cardioversion was canceled given the clot as well as the fact that he is having episodes of sinus rhythm and paroxysmal atrial fibrillation. Would recommend medical management and anticoagulating patient. cc: MD Jennifer Reed PA M. Neel Roberts, MD
[2017-06-11] MEDS ORDERED: ELIQUIS PO SCH (12:00)
[2017-06-11] MEDS: LASIX PO SCH (12:30)
[2017-06-11] MEDS: CARDIZEM CD PO SCH (12:30)
[2017-06-11] MEDS: LEVAQUIN 250 MG/D5W 250 MG/50 ML IVPB IV SCH (17:11)
[2017-06-11] MEDS: ELIQUIS PO SCH (20:45)
[2017-06-12] MEDS: DESYREL PO PRN (00:44)
[2017-06-12 05:24] LABS: HEMATOCRIT 28.9 % (42.0-52.0); HEMOGLOBIN 9.6 g/dL (14.0-18.0); MCH 33.2 PG (27-31); MCHC 33.2 g/dL (33-37); MPV 9.8 FL (7.4-10.4); RBC 2.89 XMIL (4.7-6.1)
[2017-06-12 05:34] LABS: CALCIUM 8.6 mg/dL (8.8-10.2)
[2017-06-12 08:22] VITALS: BP 124/54
[2017-06-12] MEDS: FLOMAX PO SCH (08:27)
[2017-06-12] MEDS: ELIQUIS PO SCH (08:27)
[2017-06-12] MEDS: CARDIZEM CD PO SCH (08:27)
[2017-06-12] MEDS: LASIX PO SCH (08:27)
[2017-06-12] MEDS: PLETAL PO SCH (08:27)
[2017-06-12] MEDS: LOPRESSOR PO SCH (08:27)
[2017-06-12] MEDS: PREDNISONE PO SCH (08:28)
[2017-06-12] MEDS: ZYLOPRIM PO SCH (08:28)
--- NOTE | 2017-06-13 07:06 | DISCHARGE SUMMARY ---
ADMISSION DATE: 06/04/2017 DISCHARGE DATE: 06/12/2017 DISCHARGE DIAGNOSES: 1. [id number] congestive heart failure secondary to diastolic dysfunction. 2. Paroxysmal atrial fibrillation and atrial flutter. 3. Atrial flutter with rapid rate. 4. Intermittent claudication secondary to peripheral arterial disease. 5. Severe chronic obstructive pulmonary disease. 6. Tobacco abuse. 7. Chronic renal insufficiency. 8. Recurrent gout. 9. Cellulitis of the left lower extremity. DISCHARGE INSTRUCTIONS: 1. Return to clinic in 1 week to see me, Dr. Bright Gutierrez, in anticipation of a transition of care visit. 2. Activity as tolerated. 3. Healthy heart diet. 4. Medications: Allopurinol 300 mg daily, Eliquis 2.5 mg b.i.d., Pletal 100 mg b.i.d., diltiazem 180 mg daily, Lasix 40 mg daily and may take a second Lasix if he gains 1-2 pounds in 24 hours. Lopressor 50 mg b.i.d., prednisone 20 mg daily, Flomax 0.4 mg daily, Spiriva 1 inhalation daily. PHYSICAL EXAMINATION: General: This is an elderly, frail, 81-year-old, gentleman in no apparent distress. Vital Signs: He is afebrile. Pulse 62, respirations 18, BP 126/63. CV regular rate and rhythm. Lungs: Distant breath sounds with increased period of expiration. No crackles in the lungs. Abdomen: Soft, nontender, with active bowel sounds. Extremities: One plus pitting edema in the lower extremities bilaterally. HOSPITAL COURSE: Mr. Pranav Rosen is an 81-year-old, gentleman with a longstanding history of diastolic congestive heart failure. He was admitted to [facility] with [id number] congestive heart failure secondary to diastolic dysfunction. His initial chest x- ray showed bilateral interstitial thickening consistent with fibrosis and mild interstitial edema. The patient was placed on a salt and fluid restricted diet. We began diltiazem and titrated upward on the dose of diltiazem in order to improve cardiac compliance. With the use of calcium channel blockers and increased diuresis, the interstitial edema resolved. He was breathing comfortably and maintaining O2 saturations of 96% to 98% on room air. He will continue a salt and fluid-restricted diet at home. We will continue diltiazem at 180 mg daily. I asked him to weigh daily. If he gains 1-2 pounds in 24 hours, he may take an additional Lasix. He has a history of paroxysmal atrial fibrillation and atrial flutter. He went into atrial flutter with rapid rate. Cardiology was consulted to see the patient. We titrated upward on the diltiazem and added metoprolol. They performed a GENO, which demonstrated normal left ventricular cavity size with an EF of 55% to 60%. The left atrium was enlarged. The left atrial appendage had smoke and a clot was noted. There was no aortic stenosis or regurgitation. There was mild mitral regurgitation. Because of the GENO findings, we felt the patient would benefit from long- term anticoagulation. We talked about the risks and benefits of various types of anticoagulants such as Coumadin, Eliquis, Pradaxa and Xarelto. We began Eliquis 2.5 mg b.i.d., dosed for his renal dysfunction. As he spontaneously converted back to sinus rhythm, we did not have to cardiovert him during this hospitalization. He does have a longstanding history of COPD. We continue Spiriva and Advair. We stopped the ipratropium nebulizer treatments because of agitation and nervousness. I really stressed to him the importance of smoking cessation. He has been smoking a half pack of cigarettes per day. We talked about the benefits of smoking cessation and the risks of persistent smoking. I offered to use medicines, such as Zyban or Wellbutrin, but he declined at this time. He has a longstanding history of chronic gout. He had acute gouty attack in the left hand. He had swelling, erythema and pain in that hand. We treated him with colchicine with resolution of his symptoms. He also had a cellulitis of the left lower extremity on admission. We treated him with Levaquin with resolution of the cellulitis. Having reached maximum hospital benefit, the patient was discharged in stable condition. cc: Samson Gutierrez MD
--- NOTE | 2017-06-28 10:38 | PROGRESS NOTE ---
DATE: 06/28/2017 SUBJECTIVE: Mr. Monaco has a history of acute respiratory failure with hypoxia secondary to acute- on-chronic congestive heart failure secondary to diastolic dysfunction. He has had a history of paroxysmal atrial fibrillation and atrial flutter. He had a GENO on 06/11/2017 which demonstrated a small clot in the left atrium. He is on Eliquis 2.5 mg b.i.d. He is breathing comfortably at rest but has shortness of breath with any sort of activity. He desaturated immediately yesterday with activity, and we resumed his oxygen. He has converted back into atrial flutter with a rapid rate of 138. His blood sugars are still fluctuating. He has polyuria and polydipsia. His urine output continues to be good since admission. He is negative by nearly 7000 mL. OBJECTIVE: Vital Signs: Temperature 98.1 degrees, pulse 138, respiratory 18, BP 118/55. CV: Tachycardic. Regular. S1, S2. Lungs: Faint crackles in the bases bilaterally. Abdomen soft, nontender, with active bowel sounds. Extremities: One plus pitting edema. ASSESSMENT AND PLAN: 1. Paroxysmal atrial fibrillation and flutter. I am going to begin a Cardizem drip to hopefully improve his heart rate. Given his underlying congestive heart failure, he has not tolerated the arrhythmias very well. I am concerned about using antiarrhythmic such as Multaq or amiodarone given the patient's severe underlying chronic obstructive pulmonary disease. I do not know if he would be a candidate for flecainide. He certainly can not be cardioverted at this point, as he has a small clot in the left atrium and he has only been on blood thinners for approximately 2 weeks. 2. Tqpdj-iv-rjyqgiy respiratory failure with hypoxia secondary to wizrg-ek-fkmcklj congestive heart failure secondary to diastolic dysfunction. We will continue a salt and fluid restricted diet and aggressively diurese him with Lasix. We will continue to titrate upward on the calcium channel blockers in order to improve cardiac compliance. 3. Type 2 insulin-dependent diabetes mellitus. Blood sugars are still fluctuating. I will increase the dosage of Humulin 70/30 to 15 units subcutaneously b.i.d. cc: Samson Gutierrez MD
== END 2017-06-12 10:14 | disposition home health service (06) ==
LOC: DIRADM 15:08 → 3S 15:55
PROVIDERS: ADMIT Internal Medicine; ATTEND Internal Medicine

== ENCOUNTER 2017-06-25 05:37 | Inpatient (IN) ==
--- NOTE | 2017-06-25 05:43 | EKG Report ---
Test Performed on : 06/25/2017 05:34:24 AM Test Reason : SOB Blood Pressure : / mmHG Vent. Rate : 070 BPM Atrial Rate : 071 BPM P-R Int : 000 ms QRS Dur : 138 ms QT Int : 420 ms P-R-T Axes : 000 -30 085 degrees QTc Int : 453 ms Undetermined rhythm Left axis deviation Left bundle branch block Abnormal ECG When compared with ECG of 09-JUN-2017 00:04, Current undetermined rhythm precludes rhythm comparison, needs review Unconfirmed Result
[2017-06-25] MEDS ORDERED: LASIX IV ONE (06:03)
[2017-06-25 06:17] LABS: BASO% 0.1 % (0.0-0.8); EOS# 0.07 X1000 (0.0-0.7); EOS% 0.9 % (0.0-10.0); HEMATOCRIT 28.4 % (42.0-52.0); HEMOGLOBIN 9.1 g/dL (14.0-18.0); IMM GRAN# 0.03 X1000 (0.0-0.04); IMM GRAN% 0.4 % (0.0-0.5); LYMPH# 0.46 X1000 (1.2-3.4); LYMPH% 5.7 % (20.5-51.1); MANUAL DIFF NEEDED? NO; MCH 32.2 PG (27-31); MCV 100.4 FL (81-99); MONO# 0.59 X1000 (0.11-0.59); MONO% 7.3 % (1.7-9.3); MPV 9.2 FL (7.4-10.4); NEUT% 85.6 % (42.2-75.2); PLT 242 X1000 (130-400); RBC 2.83 XMIL (4.7-6.1)
--- NOTE | 2017-06-25 06:38 | PROVIDER DOCUMENTATION ---
HPI-Cardiac General - General Chief Complaint: Shortness of Breath Stated Complaint: SOB Time Seen by Provider: 06/25/17 05:58 Source: patient, family Allergies/Adverse Reactions: Patient Allergies Allergy/AdvReac Type Severity Reaction Status Date / Time No Known Allergies Allergy Verified 06/25/17 06:12 Home Medications: Home Medication List Medication Instructions Recorded Confirmed Last Taken Type Allopurinol 300 mg PO DAILY 05/28/17 06/25/17 06/24/17 09:00 History Cilostazol 100 mg PO BID 05/28/17 06/25/17 06/24/17 21:00 History Pravastatin Sodium 20 mg PO EVERY OTHER DAY 05/28/17 06/25/17 06/24/17 21:00 History Tamsulosin HCl 0.4 mg PO DAILY 05/28/17 06/25/17 06/24/17 09:00 History Tiotropium [place] Inhaler 18 mcg IH HS 05/28/17 06/25/17 06/24/17 22:00 History [Spiriva] Apixaban [Eliquis] 2.5 mg PO BID #60 tablet 06/12/17 06/25/17 06/24/17 21:00 Rx Furosemide [Lasix] 40 mg PO DAILY #60 tablet 06/12/17 06/25/17 06/24/17 09:00 Rx Prednisone 20 mg PO DAILY #30 tablet 06/12/17 06/25/17 06/24/17 09:00 Rx Diltiazem HCl [Cartia Xt] 180 mg PO QAM 06/25/17 06/25/17 06/24/17 09:00 History Metoprolol [Lopressor] 50 mg PO QAM 06/25/17 06/25/17 06/24/17 09:00 History Potassium Chloride [Klor-Con M20] 20 meq PO DIRECTED 06/25/17 06/25/17 Unknown History - History of Present Illness-Cardiac Nature of Presenting Problem: Pt has copd and chf, is being treated for edema of his legs and has orthopnea, presents with SOB. He is currently fine, but can't lie down flat in bed. Review of Systems - Adult - REVIEW OF SYSTEMS - ADULT Constitutional: denies: chills, fever Eyes: denies: dry eyes, blurred vision Cardiovascular: reports: edema, orthopnea. denies: heart murmur Respiratory: reports: dyspnea on exertion, shortness of breath Gastrointestinal: denies: abdominal pain, constipation, diarrhea, poor appetite , vomiting Genitourinary: denies: discharge, hematuria Musculoskeletal: denies: back pain, joint pain, neck pain Integumentary: denies: hair loss, mole changes Neurological: denies: dizziness/vertigo, numbness Psychiatric: reports: no symptoms reported Endocrine: denies: goiter, cold intolerance, heat intolerance Hematologic/Lymphatic: denies: low blood count, lymphedema Allergic/Immunologic: denies: allergic reactions, eczema, frequent infections, hives Past History - Adult - PAST MEDICAL HISTORY-ADULT Review of Records: reports: Nursing Assessment Review, Medications Reviewed Physical Exam-General - PHYSICAL EXAM-ADULT Initial Vital Signs Reviewed: Yes - CONSTITUTIONAL General Appearance: appears well, alert, no apparent distress - EYES Eyes: PERRL/EOMI, pink conjunctivae - HEAD, EARS, NOSE, MOUTH & THROAT HENMT: normocephalic/atraumatic, moist mucous membranes, normal ENT inspection - NECK Neck: non-tender, full range of motion, supple, normal inspection - CARDIOVASCULAR Cardiovascular: normal peripheral pulses, regular rate, rhythm, no edema, no gallop, no JVD - GASTROINTESTINAL (ABDOMEN) Abdominal Exam: normal bowel sounds, non tender, soft, no organomegaly, no pulsatile mass - LYMPHATIC Lymphatic: no adenopathy - MUSCULOSKELETAL Back Exam: normal inspection, no CVA tenderness, no vertebral tenderness Extremity: normal range of motion, pedal edema, swelling - SKIN Integumentary: normal color, normal turgor, warm/dry - NEUROLOGIC Neurologic: gericare aide II-XII nml as tested, grossly normal - PSYCHIATRIC Psych/Mental Status: normal mood/affect, normal thought content, normal thought process, oriented x 3 Progress - PLAN OF CARE/RESULTS Progress/Plan/Lab Results: Vital Signs - 8 hr 06/25/17 05:44 06/25/17 07:00 06/25/17 07:35 Temperature 98.4 F Pulse Rate 76 75 83 Respiratory Rate 29 H 20 20 Blood Pressure 151/71 155/75 151/74 O2 Sat by Pulse Oximetry 98 100 98 06/25/17 08:00 Temperature Pulse Rate 80 Respiratory Rate Blood Pressure 147/81 O2 Sat by Pulse Oximetry 91 L Laboratory Results - last 24 hr 08/01/1006/25/17 06/25/17 05:50 05:50 05:50 WBC 8.03 RBC 2.83 L Hgb 9.1 L Hct 28.4 L MCV 100.4 H MCH 32.2 H MCHC 32.0 L RDW Std Deviation 14.4 Plt Count 242 MPV 9.2 Immature Gran % (Auto) 0.4 Neut % (Auto) 85.6 H Lymph % (Auto) 5.7 L Ross % (Auto) 7.3 Eos % (Auto) 0.9 Baso % (Auto) 0.1 Immature Gran # (Auto) 0.03 Neut # (Auto) 6.87 H Lymph # (Auto) 0.46 L Ross # (Auto) 0.59 Eos # (Auto) 0.07 Baso # (Auto) 0.01 PT INR PTT (Actin FS) D-Dimer 1.19 H Sodium 143 Potassium 4.0 Chloride 103 Carbon Dioxide 29 Anion Gap 11 BUN 24 H Creatinine 1.2 Estimated GFR/1.73 m2 58 BUN/Creatinine Ratio 20 Glucose 124 H Calculated Osmolality 290 Calcium 8.7 L Magnesium 2.2 Total Bilirubin 0.33 AST 15 ALT 24 Alkaline Phosphatase 80 Creatine Kinase 32 Troponin T Von-T-Qyhcmtjjssi Pept Total Protein 6.7 Albumin 3.5 Globulin 3.2 Albumin/Globulin Ratio 1.1 06/25/17 06/25/17 06/25/17 05:50 05:50 05:50 WBC RBC Hgb Hct MCV MCH MCHC RDW Std Deviation Plt Count MPV Immature Gran % (Auto) Neut % (Auto) Lymph % (Auto) Ross % (Auto) Eos % (Auto) Baso % (Auto) Immature Gran # (Auto) Neut # (Auto) Lymph # (Auto) Ross # (Auto) Eos # (Auto) Baso # (Auto) PT 11.6 INR 1.10 PTT (Actin FS) 21.7 L D-Dimer Sodium Potassium Chloride Carbon Dioxide Anion Gap BUN Creatinine Estimated GFR/1.73 m2 BUN/Creatinine Ratio Glucose Calculated Osmolality Calcium Magnesium Total Bilirubin AST ALT Alkaline Phosphatase Creatine Kinase Troponin T < 0.010 Ocb-I-Sfubwbevxnz Pept 2599 H Total Protein Albumin Globulin Albumin/Globulin Ratio Orders Category Date Time Status Cardiac Monitoring DIRECTED Care 06/25/17 05:40 Active Misc. NRSG Communication Order DIRECTED Care 06/25/17 07:47 Active Oxygen Therapy- ED Nursing DIRECTED Care 06/25/17 05:40 Active Saline Loc NOW Care 06/25/17 05:40 Active CHEST-1 VIEW [RAD] Stat Exams 06/25/17 05:40 Completed CBC WITH ELECTRONIC DIFF [HEME] Stat Lab 06/25/17 05:50 Completed CK PROFILE [SP CHEM] Stat Lab 06/25/17 05:50 Completed COMPREHENSIVE METABOLIC PANEL [CHEM] Stat Lab 06/25/17 05:50 Completed D-DIMER [CHEM] Stat Lab 06/25/17 05:50 Completed MAGNESIUM [CHEM] Stat Lab 06/25/17 05:50 Completed PRO B-NATRIURETIC PEPTIDE Stat Lab 06/25/17 05:50 Completed PROTIME WITH INR [COAG] Stat Lab 06/25/17 05:50 Completed PTT [COAG] Stat Lab 06/25/17 05:50 Completed TROPONIN T Stat Lab 06/25/17 05:50 Completed Furosemide [Lasix] Med 06/25/17 06:03 Discontinued 60 mg IV NOW ONE EKG [EKG] Stat Ther 06/25/17 05:40 Draft Transfer/Admit Order [TRANSFER] Routine Transfer 06/25/17 08:14 Ordered Result Diagrams: 06/25/17 05:50 06/25/17 05:50 - REASSESSMENT Reassessment #1 Status: improving (Dr Lazo has decided to admit. Qualifies for home o2 as walkaround goes to 85 02 sat) - CONSULTS/PCP/HOSPITALIST Notification #1 *Consult/PCP/Hospitalist*: Dr Gutierrez PCP notified and he is coming in to evaluate Time Discussed: 07:45 Consult Disposition: Will see in ED, Admit Departure - Departure Date of Disposition Decision: 06/25/17 Time of Disposition Decision: 08:22 DIAGNOSIS: Acute on chronic diastolic congestive heart failure CHF (congestive heart failure), NYHA class III Qualifiers: Congestive heart failure type: combined Congestive heart failure chronicity: chronic Qualified Code(s): I50.42 - Chronic combined systolic (congestive) and diastolic (congestive) heart failure Disposition: ADMITTED INPATIENT 09 Certified Medical Emergency: Emergent Condition: Fair Referrals and Follow-Ups: Nuno Gutierrez MD [Primary Care Provider] - - Critical Care Note This patient required my direct & personal management of CC.: No
[2017-06-25 06:49] LABS: ALBUMIN 3.5 g/dL (3.5-5.0); CALCIUM 8.7 mg/dL (8.8-10.2); INR 1.1; MAGNESIUM 2.2 mg/dL (1.5-2.7); PROTIME 11.6 Seconds (9.2-11.7); PTT 21.7 Seconds (22.0-36.0); TOTAL BILIRUBIN 0.33 mg/dL (0.20-1.00); TOTAL PROTEIN 6.7 g/dL (6.3-8.3)
--- NOTE | 2017-06-25 07:07 | Diag Imaging Result Doc PS360 ---
EXAM: CHEST-1 VIEW HISTORY: CP TECHNIQUE: Portable upright AP COMPARISON: 06/07/2017 FINDINGS: There are increased interstitial markings throughout both lungs. Findings are more pronounced on the current study. Heart is not enlarged. I believe there are tiny pleural effusions. IMPRESSION: Interval worsening with increased interstitial markings bilaterally which may simply be pulmonary edema although they could represent pneumonia. Electronically signed by Donald Horton 06/25/2017 7:05 AM
[2017-06-25] MEDS ORDERED: TYLENOL PO PRN (09:23)
[2017-06-25] MEDS ORDERED: KLOR-CON PO SCH (09:23)
[2017-06-25] MEDS ORDERED: ZOFRAN IV PRN (09:23)
[2017-06-25 09:55] LABS: ALLEN TEST YES; BE 7.2 mmoll (-3.0-3.0); BLOOD TYPE ARTERIAL; DRAW SITE R RADIAL; O2(CT) 11.8 mL/dL (15.0-23.0); PCO2(98.6) 46 mmHg (35-45); PO2(98.6) 65 mmHg (60-100); SAMPLE BLOOD; SAO2 96.7 % (95.0-100.0); THB 9.1 g/dL (11.5-17.4); pH(98.6) 7.45 (7.35-7.45)
[2017-06-25 09:56] LABS: MODALITY ROOM AIR
[2017-06-25] MEDS: WELLBUTRIN XL PO SCH ×2 (10:40→20:55)
[2017-06-25] MEDS: ELIQUIS PO SCH ×2 (10:40→20:55)
[2017-06-25] MEDS: ZYLOPRIM PO SCH (10:40)
[2017-06-25] MEDS: PRAVACHOL PO SCH (10:40)
[2017-06-25] MEDS: FLOMAX PO SCH (10:40)
[2017-06-25] MEDS: PREDNISONE PO SCH (10:40)
[2017-06-25] MEDS: PLETAL PO SCH ×2 (10:40→20:55)
[2017-06-25] MEDS: LOPRESSOR PO SCH (10:40)
[2017-06-25] MEDS: CARDIZEM CD PO SCH (10:40)
[2017-06-25] MEDS: SYMBICORT 160/4.5 MICROGM INHALER INH SCH ×2 (10:45→21:14)
[2017-06-25] MEDS: LASIX IV SCH ×2 (10:46→20:55)
--- NOTE | 2017-06-25 11:53 | ED EKG INTERP ---
This chart was entered by Mimi Plascencia Scribe, acting as scribe for Alexy Medina MD. EKG Interpretation - EKG Time of EKG reading by physician:: 05:34 EKG Read and Signed by:: Alexy Medina EKG Interpretation (*Must complete 3 of following elements*): Abnormal Rate: 70 Rhythm: undetermined rhythm Comments: left axis deviation; LBBB This chart was documented by the indicated scribe, (Mimi Plascencia Scribe) and accurately reflects the services I performed and decisions made by me, Alexy Medina MD, as attested by the provider's signature.
--- NOTE | 2017-06-25 17:50 | HISTORY AND PHYSICAL ---
HISTORY OF PRESENT ILLNESS: Mr. Pranav Rosen is an 81-year-old, gentleman with a history of multiple medical problems including essential hypertension, severe chronic obstructive pulmonary disease, with chronic tobacco abuse, chronic congestive heart failure secondary to diastolic dysfunction, intermittent claudication secondary to peripheral arterial disease, and chronic renal failure. He had recently been hospitalized at [facility] from 06/04 to 06/12/2017 with acute on chronic congestive heart failure secondary to diastolic dysfunction. Over the past 2 or 3 days Mr. Rosen has had worsening shortness of breath, shortness of breath with activities of daily living, increasing peripheral edema, PND, and 2 pillow orthopnea. His proBNP was in excess of 2000. His chest x-ray demonstrated increased interstitial edema. He had an O2 saturation of 85% with ambulation on room air. He denies any chest pain, palpitations, or anginal equivalents. He does have a history of paroxysmal atrial flutter. He remains in normal sinus rhythm. His heart rate has been well controlled on a combination of Lopressor 50 mg b.i.d. and diltiazem 180 mg daily. He has had no bleeding complications secondary to the Eliquis. He also has a history of severe COPD. Unfortunately he still smokes a quarter pack of cigarettes per day. PAST MEDICAL HISTORY: As above. PAST SURGICAL HISTORY: Removal of coin lesion in the right lung, laminectomy at L3-L4. ALLERGIES: No known drug allergies. SOCIAL HISTORY: He continues to smoke a quarter pack of cigarettes per day. He smokes a pipe daily. He denies the use of alcoholic beverages. FAMILY HISTORY: Father at the age of 72, he had hypertension and CVA. His mother at age 53, she had ischemic heart disease status post MO. A brother had lymphoma. MEDICATIONS: Allopurinol 300 mg daily. Eliquis 2.5 mg b.i.d. Pletal 100 mg b.i.d. Diltiazem 180 mg daily. Lasix 40 mg daily, may take a second Lasix if he gains 1-2 pounds in 24 hours. Lopressor 50 mg b.i.d. Prednisone 20 mg daily. Flomax 0.4 mg daily. Spiriva 1 inhalation daily. REVIEW OF SYSTEMS: Constitution: He denies any recent weight gain or weight loss. HEENT: He wears glasses. He is hard of hearing. CV: No chest pain, palpitations, or anginal equivalents. Pulmonary: See HPI. GI: No reflux, dysphagia, melena, hematochezia, change in bowel habits, or rectal bleeding. Endocrine: No polyuria, no polydipsia. No cold or heat intolerance. Skin: No easy bruisability. : No leakage of urine with coughing or laughing. Neuro: No migraines or seizures. PHYSICAL EXAMINATION: GENERAL APPEARANCE: This is a chronically ill-appearing, 81-year-old, gentleman in mild distress secondary to shortness of breath. VITAL SIGNS: Temperature 98.5 degrees, pulse 71, respirations 22, blood pressure 118/60. HEENT: Fundi with arteriolar wall thickening. Pupils equal, round, reactive to light. Extraocular eye movements intact. TMs without bullae. NECK: Supple. No masses, JVD or bruits. CV: Regular rate and rhythm. LUNGS: Distant breath sounds with increased period of expiration. There are crackles in the bases bilaterally. ABDOMEN: Soft, nontender, with active bowel sounds. EXTREMITIES: 1+ pitting edema in the lower extremities bilaterally. AND RECTAL EXAMS: Deferred. NEUROLOGIC: Nonfocal. ASSESSMENT AND PLAN: 1. Acute respiratory failure with hypoxia secondary to acute on chronic congestive heart failure secondary to diastolic dysfunction. I am going to admit him to [facility]. We will place him on a salt and fluid restricted diet and will diurese him aggressively with Lasix 40 mg IV q.12 hours. We will titrate upward on the diltiazem as tolerated. Certainly he may be a candidate for the use of Zaroxolyn as an outpatient in addition to taking daily Lasix with additional Lasix if he gains 1-2 pounds in 24 hours. He has had a recent echocardiogram and I will not repeat the echocardiogram at this time. 2. Paroxysmal atrial flutter. He remains in normal sinus rhythm. We will continue diltiazem and metoprolol for rate control. We will continue Eliquis to reduce the risk of stroke. 3. Chronic obstructive pulmonary disease. He has severe chronic obstructive pulmonary disease. Unfortunately he continues to smoke. We will continue the Spiriva hand inhaler daily and add Symbicort 160/4.5 two puffs b.i.d. We will continue nebulizer treatments. I really stressed to him the importance and absolute necessity of smoking cessation. We will begin Wellbutrin 150 mg b.i.d. to assist with cigarette withdrawal. 4. Given the patient's clinical course and comorbid conditions, I believe that admission to the hospital is necessary. I anticipate that he will be in the hospital for at least 2 midnights and I will therefore place him in inpatient status. Eliquis 2.5 mg b.i.d. is an appropriate medicine for deep venous thrombosis prophylaxis. The use of Lovenox or heparin with Eliquis is contraindicated. cc: Samson Gutierrez MD
[2017-06-25] MEDS: SPIRIVA INH SCH (21:14)
[2017-06-26] MEDS ORDERED: TYLENOL PO PRN (00:03)
[2017-06-26] MEDS: LASIX IV SCH ×2 (06:07→17:02)
[2017-06-26] MEDS: SYMBICORT 160/4.5 MICROGM INHALER INH SCH ×2 (07:48→19:30)
--- NOTE | 2017-06-26 08:27 | PROGRESS NOTE ---
DATE: 06/26/2017 SUBJECTIVE: Mr. Pranav Rosen was admitted to [facility] with acute respiratory failure with hypoxia secondary to acute on chronic congestive heart failure secondary to diastolic dysfunction. We have placed him on a salt and fluid restricted diet. We have been diuresing him aggressively. He has had urine output of 1650 mL overnight. He reports that he is breathing more comfortably. He is maintaining O2 saturations of 94-95% on 1.5 L of oxygen per nasal cannula. His blood sugars are fluctuating. Blood sugars are ranging from 185-157. PHYSICAL EXAMINATION: Vital Signs: Temperature 98.7 degrees, pulse 83, respirations 16, BP 116/65. CV: Regular rate and rhythm. Lungs: Distant breath sounds with increased period of expiration. There are faint crackles in the bases bilaterally. Abdomen: Soft, nontender, with active bowel sounds. Extremities: There is 1+ pitting edema in the lower extremities bilaterally. ASSESSMENT AND PLAN: 1. Acute respiratory failure with hypoxia secondary to acute on chronic congestive heart failure secondary to diastolic dysfunction. We will continue a salt and fluid restricted diet, and aggressively diurese him with Lasix. I will recheck a PA and lateral chest x-ray today as well as a BMP. 2. Chronic obstructive pulmonary disease. We will continue Spiriva, Symbicort 160/4.5 two puffs twice a day, and nebulizer treatments. 3. New onset type 2 rcz-cxnwzrc-bovpgqutg diabetes mellitus. Given his renal insufficiency, he cannot take metformin. Because of the congestive heart failure, he cannot take Actos. I really do not want to use a sulfonamide in the setting of renal insufficiency. Certainly losing some weight would help with his breathing. I am going to begin Victoza. cc: Samson Gutierrez MD
--- NOTE | 2017-06-26 08:37 | Diag Imaging Result Doc PS360 ---
EXAM: CHEST-2 VIEWS HISTORY: CHF TECHNIQUE: COMPARISON: 06/25/2017 FINDINGS: The lungs are well expanded. The heart is not enlarged. Tiny pleural effusions blunt the posterior gutters. There are increased interstitial markings bilaterally. These are less pronounced than prior exam. Apical pleural thickening and scarring is present bilaterally. IMPRESSION: Overall interval improvement. Electronically signed by Donald Horton 06/26/2017 8:35 AM
[2017-06-26] MEDS: PREDNISONE PO SCH (08:39)
[2017-06-26] MEDS: CARDIZEM CD PO SCH (08:39)
[2017-06-26] MEDS: FLOMAX PO SCH (08:39)
[2017-06-26] MEDS: PLETAL PO SCH ×2 (08:39→20:44)
[2017-06-26] MEDS: ELIQUIS PO SCH ×2 (08:39→20:44)
[2017-06-26] MEDS: ZYLOPRIM PO SCH (08:39)
[2017-06-26] MEDS: LOPRESSOR PO SCH (08:39)
[2017-06-26] MEDS: WELLBUTRIN XL PO SCH ×2 (08:39→20:44)
[2017-06-26] MEDS: VICTOZA SUBQ SCH (09:01)
[2017-06-26 16:20] LABS: HEMOGLOBIN A1C 6.6 % (4.8-6.0)
[2017-06-26 16:30] LABS: CALCIUM 8.6 mg/dL (8.8-10.2); POTASSIUM 4.3 mmol/L (3.5-5.1)
[2017-06-26] MEDS: SPIRIVA INH SCH (19:30)
[2017-06-27] MEDS: LASIX IV SCH ×2 (05:24→08:58)
[2017-06-27] MEDS: SYMBICORT 160/4.5 MICROGM INHALER INH SCH ×2 (07:32→21:15)
[2017-06-27] MEDS ORDERED: INSULIN PEN NEEDLES ONE (08:10)
[2017-06-27] MEDS: PREDNISONE PO SCH (08:57)
[2017-06-27] MEDS: ZAROXOLYN PO SCH (08:57)
[2017-06-27] MEDS: ELIQUIS PO SCH ×2 (08:57→20:13)
[2017-06-27] MEDS: FLOMAX PO SCH (08:57)
[2017-06-27] MEDS: ZYLOPRIM PO SCH (08:57)
[2017-06-27] MEDS: LOPRESSOR PO SCH (08:57)
[2017-06-27] MEDS: CARDIZEM CD PO SCH (08:57)
[2017-06-27] MEDS: VICTOZA SUBQ SCH (08:57)
[2017-06-27] MEDS: WELLBUTRIN XL PO SCH ×2 (08:58→20:13)
[2017-06-27] MEDS: PLETAL PO SCH ×2 (08:58→20:13)
[2017-06-27] MEDS: PRAVACHOL PO SCH (08:58)
--- NOTE | 2017-06-27 10:18 | PROGRESS NOTE ---
DATE: 06/27/2017 Mr. Rosen was admitted to [facility] with acute respiratory failure with hypoxia secondary to acute on chronic congestive heart failure secondary to diastolic dysfunction. He has been maintaining O2 saturations of 91-94% at rest. When he sat up, put on his slippers and stood up, his oxygen levels dropped to 86%. We started 2 L of O2 per nasal cannula and his oxygen levels immediately improved into the mid 90s. He has had good diuresis with Lasix. His I Os have been negative by over 4000 mL since admission. Chest x-ray shows interval improvement in the degree of interstitial edema. He remains in normal sinus rhythm. He denies any chest pain, palpitations, or anginal equivalents. His blood sugars are ranging from 181-239. His hemoglobin A1c was 6.6. I have started Victoza. OBJECTIVE: Temperature 98.2 degrees, pulse 75, respirations 20, BP 120/67. Heart: CV regular rate and rhythm. Lungs: Distant breath sounds with increased period of expiration. There are fine rales in the bases bilaterally. Abdomen: Soft, nontender, with active bowel sounds. Extremities: 1+ pitting edema. ASSESSMENT AND PLAN: 1. Acute respiratory failure with hypoxia secondary to acute on chronic congestive heart failure secondary to diastolic dysfunction. We will continue a salt and fluid restricted diet. I will switch him to Zaroxolyn 2.5 mg 30 minutes prior to his morning dosage of oral Lasix. He will continue to weigh daily and take additional Lasix if he gains 1-2 pounds. I believe that he will need continuous home oxygen at 2 L per nasal cannula. 2. Type 2 bbi-upwbxih-yfcagrhrc diabetes mellitus. We will continue an 1800 calorie ADA diet, pattern sugars, Humulin R sliding scale, and titrate upward on the Victoza as indicated. I am hoping that by helping him lose 10-15 pounds that it will help to improve his breathing. 3. Physical debility. He is rather frail. He uses a walker at home. We will consult physical therapy. I have talked to both and Ms. Rosen and feel that he would benefit from short- term rehab. He does not want to consider short-term rehab at this point in time. We will arrange for home health at discharge. I told him that he can be admitted to short-term rehab within 30 days of discharge from home if he does not make appropriate progress with home health. cc: Samson Gutierrez MD
[2017-06-27] MEDS: HUMULIN R SUBQ SCH ×2 (16:44→20:19)
[2017-06-27] MEDS: HUMULIN 70/30 SUBQ SCH (16:54)
[2017-06-27] MEDS: SPIRIVA INH SCH (21:15)
[2017-06-28] MEDS: HUMULIN 70/30 SUBQ SCH ×2 (06:39→17:06)
[2017-06-28] MEDS: HUMULIN R SUBQ SCH ×4 (06:43→21:28)
[2017-06-28] MEDS: SYMBICORT 160/4.5 MICROGM INHALER INH SCH ×2 (07:46→21:10)
[2017-06-28] MEDS ORDERED: INSULIN PEN NEEDLES ONE (08:19)
[2017-06-28] MEDS: LASIX IV SCH (08:26)
[2017-06-28] MEDS: PLETAL PO SCH ×2 (08:26→19:52)
[2017-06-28] MEDS: ZYLOPRIM PO SCH (08:27)
[2017-06-28] MEDS: PREDNISONE PO SCH (08:27)
[2017-06-28] MEDS: FLOMAX PO SCH (08:27)
[2017-06-28] MEDS: ZAROXOLYN PO SCH (08:27)
[2017-06-28] MEDS: WELLBUTRIN XL PO SCH ×2 (08:27→19:52)
[2017-06-28] MEDS: ELIQUIS PO SCH ×3 (08:27→21:26)
[2017-06-28] MEDS: VICTOZA SUBQ SCH (08:27)
[2017-06-28] MEDS: CARDIZEM CD PO SCH (08:27)
[2017-06-28] MEDS: LOPRESSOR PO SCH (08:27)
[2017-06-28] MEDS ORDERED: MISC. PHARMACY COMMUNICATION SCH (09:00)
[2017-06-28] MEDS: CARDIZEM 100 MG/NS 100 MG/100 ML IVPB IV SCH (09:18)
[2017-06-28 09:58] LABS: POTASSIUM 3.3 mmol/L (3.5-5.1)
[2017-06-28] MEDS: SPIRIVA INH SCH (21:10)
[2017-06-29] MEDS: PLETAL PO SCH ×3 (01:07→20:42)
[2017-06-29] MEDS: WELLBUTRIN XL PO SCH ×3 (01:07→20:42)
[2017-06-29] MEDS: CARDIZEM 100 MG/NS 100 MG/100 ML IVPB IV SCH ×3 (02:34→21:03)
[2017-06-29] MEDS: HUMULIN 70/30 SUBQ SCH ×2 (06:14→16:41)
[2017-06-29] MEDS: HUMULIN R SUBQ SCH ×4 (06:14→21:01)
[2017-06-29] MEDS: SYMBICORT 160/4.5 MICROGM INHALER INH SCH ×2 (07:43→21:20)
[2017-06-29] MEDS: PRAVACHOL PO SCH (08:10)
[2017-06-29] MEDS: LOPRESSOR PO SCH ×2 (08:10→20:42)
[2017-06-29] MEDS: LASIX IV SCH (08:11)
[2017-06-29] MEDS: ZYLOPRIM PO SCH (08:11)
[2017-06-29] MEDS: FLOMAX PO SCH (08:11)
[2017-06-29] MEDS: PREDNISONE PO SCH (08:11)
[2017-06-29] MEDS: ELIQUIS PO SCH (08:11)
[2017-06-29] MEDS ORDERED: CITRATE OF MAGNESIA PO ONE (09:18)
--- NOTE | 2017-06-29 09:41 | PROGRESS NOTE ---
DATE: 06/29/2017 SUBJECTIVE: Mr. Rosen was admitted to [facility] with acute respiratory failure with hypoxia secondary to acute on chronic congestive heart failure secondary to diastolic dysfunction. The patient has a history of paroxysmal atrial fibrillation and atrial flutter. He went back into atrial flutter with a rapid rate yesterday. We started him on a Cardizem drip. His heart rate has been in the 70s and 80s overnight. He reports that he is breathing more comfortably. His O2 saturations are 97-100% on 2 L at rest. He reported that he had less shortness of breath when walking in the halls with physical therapy and when walking to the bathroom. He continues to have good urine output. His blood sugars are trending down. His evening sugars are in the range of 206-280, mid morning sugars are in the range of 60-127. PHYSICAL EXAMINATION: Vital Signs: He is afebrile. Pulse 79, respirations 16, BP 112/45. CV: Regular rate and rhythm. Lungs: Distant breath sounds with increased period of expiration. Abdomen: Soft, nontender, with active bowel sounds. No hepatosplenomegaly. No abdominal bruits. Extremities: With 1+ pitting edema bilaterally. ASSESSMENT AND PLAN: 1. Paroxysmal atrial fibrillation in the setting of known diastolic dysfunction. The patient remains in atrial fibrillation/atrial flutter. He has worsening failure with elevated rates. His heart rate has improved. I am going to wean him off the Cardizem drip and resume Cardizem 60 mg three times a day and increase the metoprolol to 50 twice a day. We will continue Eliquis 2.5 mg twice a day. Because of the paroxysmal atrial fibrillation/atrial flutter, Multaq is not indicated as there have been increased literature studies consistent with sudden . He seems to have more difficulty when his rate is elevated. He ultimately may need atrioventricular ablation with a pacemaker placement. 2. Chronic respiratory failure secondary to acute on chronic congestive heart failure secondary to diastolic dysfunction. We will continue a salt and fluid restricted diet, and titrate upward on the Cardizem to improve cardiac compliance. We will continue to diurese him aggressively with Lasix. 3. Type 2 insulin-dependent diabetes mellitus. I am going to increase the Humulin 70/30 to 20 units subcutaneously twice a day. cc: Samson Gutierrez MD
[2017-06-29] MEDS ORDERED: LANOXIN IV ONE ×2 (11:02→15:00)
[2017-06-29 11:20] LABS: HEMATOCRIT 26.4 % (42.0-52.0); HEMOGLOBIN 8.5 g/dL (14.0-18.0)
[2017-06-29 11:42] LABS: IRON SATURATION 17 %; TIBC 252 ug/dL; TOTAL IRON 43 ug/dL (53-167); UNBOUND IRON 209 ug/dL (112-346)
[2017-06-29] MEDS: CARDIZEM PO SCH ×2 (13:46→20:41)
[2017-06-29] MEDS ORDERED: INSULIN PEN NEEDLES ONE (15:22)
[2017-06-29] MEDS: PROTONIX PO SCH (15:31)
--- NOTE | 2017-06-29 19:37 | CONSULTATION ---
DATE OF CONSULTATION: 06/29/2017 IMPRESSION: 1. Persistent atrial arrhythmias with atrial fibrillation and atypical atrial flutter. 2. Recurrent congestive heart failure with normal left ventricular ejection fraction and evidence of pulmonary hypertension by Doppler study. Estimated systolic PA pressure 65 mmHg. Suspect combination of diastolic left ventricular heart failure and cor pulmonale. 3. Severe chronic obstructive pulmonary disease. 4. Anemia. 5. Hyperlipidemia. 6. History of previous back surgery. RECOMMENDATIONS: 1. Continue metoprolol for rate control. 2. Given tendency for problematic constipation, would add digoxin and see if Cardizem dose can be reduced. 3. Evaluate anemia. Will repeat hematocrit and order iron studies, B12 level, folate level. 4. At present patient does not appear to be any distress to warrant transfusion but this may be a consideration. 5. Consider GI evaluation. 6. For now will continue efforts to control heart rate rather than pursue antiarrhythmic therapy. The patient was noted on recent admission to have possible thrombus on GENO. HISTORY: This 81-year-old white male with past history of atrial arrhythmias, recurrent congestive heart failure with normal left ventricular ejection fraction, severe COPD, anemia, chronic kidney disease, and peripheral artery disease was recently admitted with worsening dyspnea symptoms. He was noted to have atrial fibrillation versus atypical atrial flutter with rapid ventricular rate. He has been started on intravenous Cardizem in addition to his oral Cardizem and oral metoprolol. He was felt to have congestive heart failure. He has been diuresed. He has had significant edema as well and this seems to be persisting. He tends to sleep sitting up in recliner on a chronic basis. He does this because of chronic dyspnea/orthopnea. There has been no angina. He is not known to have coronary disease. He has had problems with bilateral lower extremity weakness and easy fatigue as well as claudication and has been found to have significant peripheral artery disease lower extremities. He has not noted any melena or bright red blood per rectum. There is no history of peptic ulcer disease. PAST MEDICAL HISTORY: 1. Recurrent atrial arrhythmias including atrial fibrillation and what appears to be atypical atrial flutter dating back as far as January 2011. 2. Congestive heart failure with normal left ventricular ejection fraction. Suspect this is a combination of left ventricular diastolic dysfunction and perhaps a greater degree of cor pulmonale. 3. Severe COPD. 4. Chronic renal insufficiency with creatinine around 1.4. 5. Severe peripheral artery disease. 6. Hyperlipidemia. PAST SURGICAL HISTORY: Includes unspecified back surgery. MEDICATIONS: As listed. SOCIAL HISTORY: He has history of previous chronic cigarette use at a rate of 1 pack of cigarettes per day which he discontinued. He is currently may smoke a pipe. He does not use alcohol. FAMILY HISTORY: Is positive for coronary disease in that his mother at age 53 with history of myocardial infarction. REVIEW OF SYSTEMS: Pulmonary: Noteworthy for dyspnea as well as orthopnea. The latter is chronic. Tends to sleep in a recliner because of this. Gastrointestinal: Negative for melena or bright red blood per rectum. He has not had any dyspepsia. There is no history of peptic ulcer disease. Constitutional: Negative. Remained review of systems negative/noncontributory with 14 total systems reviewed. PHYSICAL EXAMINATION: General: Reveals a chronically ill-appearing, elderly male in no distress on supplemental oxygen per nasal cannula. Vital signs: Blood pressure 117/47, heart rate 74 and irregular. HEENT: Extraocular movements intact. Mucous membranes are moist. Neck: Supple. Jugular venous pressure appears to be 8-10 cm. Carotid bruits cannot be appreciated. Lungs: Auscultation chest reveals diminished breath sounds diffusely with some inspiratory crackles in the right base. Cardiac Exam: Reveals an irregular rate and rhythm without appreciable murmur or gallop. Abdomen: Soft, nontender. Bowel sounds are normal. Extremities: Demonstrate 2+ to 3+ edema extending up to the level of the knee. Neurologic Exam: Reveals him to be alert and fully oriented. Speech is fluent. Moves all 4 extremities equally well. Skin: Warm, dry. Psych exam: Reveals mood to be appropriate. DIAGNOSTIC DATA: ECG dated 06/25/2017 demonstrates atrial fibrillation with controlled ventricular rate response. Repeat ECG dated 06/25/2017. Twelve lead EKG dated at 5:34 a.m. demonstrates what appears to be sinus rhythm with 1st degree AV block and frequent premature supraventricular complexes, left axis deviation, left bundle branch block. EKG dated 06/28/2017 demonstrates undetermined rhythm, atrial fibrillation versus atypical atrial flutter with rapid ventricular rate and left bundle branch block. LABORATORY DATA: Remarkable for hematocrit 06/25/2017 28.4 with an MCV 100.4, repeat hematocrit today 26.4. BUN 24, creatinine 1.2 on 06/25/2017. BUN on 06/28/2017 34 with a creatinine of 1.6. cc: MD Samson Hubbard MD
[2017-06-29] MEDS: SPIRIVA INH SCH (21:20)
[2017-06-30] MEDS: PROTONIX PO SCH ×2 (04:56→06:03)
[2017-06-30] MEDS: CARDIZEM PO SCH ×3 (04:56→20:44)
[2017-06-30] MEDS: HUMULIN R SUBQ SCH ×4 (06:08→20:44)
[2017-06-30] MEDS: HUMULIN 70/30 SUBQ SCH ×2 (06:35→16:57)
--- NOTE | 2017-06-30 06:46 | EKG Report ---
Test Performed on : 06/28/2017 08:43:09 AM Test Reason : rhythm change Blood Pressure : / mmHG Vent. Rate : 117 BPM Atrial Rate : 133 BPM P-R Int : 000 ms QRS Dur : 138 ms QT Int : 354 ms P-R-T Axes : 000 -28 134 degrees QTc Int : 493 ms Probable sinus rhythm with atrial dysrhythmia Left bundle branch block Abnormal ECG When compared with ECG of 25-JUN-2017 05:34, T wave amplitude has decreased in II ST more depressed in high-lateral leads (likely BBB related) Non-specific change in ST segment in in V1 (elevation) Confirmed by Domenico Nazario DO ([id number]) on 06/30/2017 5:39:51 PM
[2017-06-30] MEDS: SYMBICORT 160/4.5 MICROGM INHALER INH SCH ×2 (07:35→19:43)
[2017-06-30] MEDS ORDERED: BENADRYL PO ONE (08:34)
[2017-06-30] MEDS: ZYLOPRIM PO SCH (09:18)
[2017-06-30] MEDS: FLOMAX PO SCH (09:18)
[2017-06-30] MEDS: LOPRESSOR PO SCH ×2 (09:19→20:44)
[2017-06-30] MEDS: ZANTAC PO SCH ×2 (09:19→20:44)
[2017-06-30] MEDS: LASIX IV SCH (09:19)
[2017-06-30] MEDS: WELLBUTRIN XL PO SCH ×2 (09:19→20:44)
[2017-06-30] MEDS: PLETAL PO SCH ×2 (09:19→20:44)
[2017-06-30] MEDS: ELIQUIS PO SCH ×2 (09:19→20:44)
[2017-06-30] MEDS: PREDNISONE PO SCH (09:20)
--- NOTE | 2017-06-30 09:32 | PROGRESS NOTE ---
DATE: 06/30/2017 SUBJECTIVE: Mr. Rosen was admitted to [facility] with acute respiratory failure with hypoxia secondary to acute on chronic congestive heart failure secondary to diastolic dysfunction. He is breathing more comfortably. He is maintaining O2 saturations of 99-100% on 2 L of O2 per nasal cannula. He does have mild dyspnea with ambulation in the halls and when ambulating to the bathroom. He remains in atrial fibrillation. His heart rate is well controlled on a combination of diltiazem and metoprolol. A recent transesophageal echocardiogram showed a small clot in the left atrium. He has been on Eliquis for 2 weeks. He has had a history of chronic anemia and his blood counts have been trending down. His hemoglobin and hematocrit were 8 and 26 this morning. His stools were heme positive. His iron was 43. He has had an esophagogastroduodenoscopy and colonoscopy in the past. OBJECTIVE: Vital Signs: Temperature 97.8 degrees, pulse 78, respirations 16, blood pressure 109/55. Cardiovascular: Irregularly irregular. Lungs: Distant breath sounds with increased period of expiration. Abdomen: Soft, nontender, with active bowel sounds. ASSESSMENT AND PLAN: 1. Atrial fibrillation with atrial flutter. We will continue digoxin, Cardizem, and metoprolol for rate control. Given the findings of a left atrial clot on the transesophageal echocardiogram, we will continue eloquent is 2.5 mg b.i.d. At this point in time, I believe that it is too dangerous to attempt to stop the Eliquis given the significant risk for stroke. 2. Acute respiratory failure with hypoxia secondary to acute on chronic congestive heart failure secondary to diastolic dysfunction. We will continue a salt and fluid restricted diet and aggressively diurese him with Lasix. We will use beta-blockers and calcium tunnel blockers to improve cardiac compliance. 3. Anemia of chronic disease. I suspect that the in the anemia is multifactorial. He does have heme-positive stools. He has renal insufficiency. At this point in time, he is hemodynamically stable. He is not tachycardic. He is not hypotensive. I believe that it would be too dangerous to stop the Eliquis at this point in time, in order to perform an esophagogastroduodenoscopy and colonoscopy given the dramatic increased risk for a stroke, with the findings of atrial fibrillation and that left atrial clot. As he is hemodynamically stable, I believe the more prudent course would be to give him a unit of packed red blood cells and to consult Dr. Smith for an iron infusion. He will most likely need a repeat transesophageal echocardiogram in 6 to 8 weeks. If the clot has dissolved on Eliquis, then I believe it would be safer at that point in time to consider a GI workup. cc: Samson Gutierrez MD
[2017-06-30] MEDS ORDERED: NS 500 ML ONE (12:14)
--- NOTE | 2017-06-30 15:13 | EKG Report ---
Test Performed on : 06/30/2017 2:45:51 PM Test Reason : atrial fibrillation Blood Pressure : / mmHG Vent. Rate : 072 BPM Atrial Rate : 072 BPM P-R Int : 304 ms QRS Dur : 144 ms QT Int : 440 ms P-R-T Axes : -59 -28 115 degrees QTc Int : 481 ms Unusual P axis, possible ectopic atrial rhythm. Left bundle branch block Abnormal ECG When compared with ECG of 28-JUN-2017 08:43, (Unconfirmed) Previous ECG has undetermined rhythm, needs review Confirmed by Domenico Nazario DO ([id number]) on 06/30/2017 5:40:20 PM
--- NOTE | 2017-06-30 16:05 | PROGRESS NOTE ---
DATE: 06/30/2017 SUBJECTIVE: Patient relates feeling much better. He denies dyspnea. He is currently receiving a transfusion. OBJECTIVE: Vital Signs: Blood pressure 132/52, heart rate 69 and regular. ECG monitor now shows sinus rhythm. Chest: Auscultation of chest reveals diminished breath sounds diffusely. Cardiac: Reveals a regular rate and rhythm without appreciable murmur or gallop. There is no evidence of peripheral edema. LABORATORY DATA: Includes a serum iron 43, TIBC 252, ferritin 202. IMPRESSIONS: 1. Atrial arrhythmias. Now appear to be paroxysmal in nature with atrial fibrillation and atypical atrial flutter paroxysmally. Patient currently in sinus rhythm. 2. Recurrent congestive heart failure with normal left ventricular ejection fraction and evidence of pulmonary hypertension by Doppler study. Estimated systolic PA pressure 65 mmHg. Suspect combination of diastolic left ventricular failure and cor pulmonale. 3. Severe chronic obstructive pulmonary disease. 4. Anemia. Suspect this very well may be anemia of chronic disease. 5. Hyperlipidemia. 6. History of previous back surgery. RECOMMENDATIONS: 1. Discontinue intravenous diltiazem. 2. Continue combination of metoprolol, digoxin primarily for rate control, supplementing with oral diltiazem as needed. He seems to have had considerable difficulty with constipation with diltiazem and may benefit from efforts to minimize dosage. 3. Cautious anticoagulation in light of patient's anemia. 4. At present will manage with rate control and cautious anticoagulation. cc: MD Samson Hubbard MD
[2017-06-30] MEDS ORDERED: VENOFER 500 MG in NS 250 ML IV ONE (16:07)
[2017-06-30] MEDS ORDERED: BENADRYL IV ONE (16:08)
[2017-06-30] MEDS ORDERED: TYLENOL PO ONE (16:08)
[2017-06-30] MEDS: SPIRIVA INH SCH ×2 (19:43→22:30)
--- NOTE | 2017-06-30 20:46 | CONSULTATION ---
DATE OF CONSULTATION: 06/30/2017 REASON FOR CONSULT: Patient has iron deficiency anemia. HISTORY OF PRESENT ILLNESS: This gentleman has had multiple recent hospitalizations with congestive heart failure and diastolic dysfunction and severe chronic obstructive pulmonary disease. His last discharge was on June 12 with acute on chronic congestive heart failure. He began having worsening peripheral edema, shortness of breath with activity and orthopnea and PND over the last several days. He came to the emergency room for further evaluation. Chest x-ray on this admission, June 25, showed increased interstitial markings bilaterally. He denies any chest pain, any obvious clinical bleeding, any black bright red stools, no lumps or bumps or bone pain. His hemoglobin on admission was 9.1, hematocrit 28.4, and as of yesterday hemoglobin was 8.5, hematocrit 26.4. He is found to be iron deficient, so we have ordered a dose of IV iron. B12 and folate are both adequate. He had a transesophageal echocardiogram performed during his last hospitalization as he was in paroxysmal atrial fibrillation and it was to be performed prior to cardioversion. The cardioversion was ultimately canceled given the possible left atrial appendage clot. Patient is currently on Eliquis 2.5 b.i.d. REVIEW OF SYSTEMS: Negative unless indicated in HPI. PAST MEDICAL HISTORY: Congestive heart failure with diastolic dysfunction. Atrial fibrillation/flutter. Chronic renal insufficiency. Peripheral arterial disease. Severe COPD. SOCIAL HISTORY: The patient smokes 1/4 of a pack of cigarettes a day and smokes a pipe every day. Denies alcohol or illicit drug use. His father had hypertension and CVA. Brother with lymphoma. ALLERGIES: There are no known allergies. HOME MEDICATIONS: Eliquis 2.5 b.i.d. Allopurinol. Pletal. Cardizem. Lasix. Prednisone. Lopressor. Flomax. PHYSICAL EXAMINATION: General: This is a chronically ill-appearing female, in no acute distress. Vital Signs: Stable. HEENT: Head is normocephalic, atraumatic. Pupils equal, round, symmetric. Trachea is midline. Neck: Supple. Cardiovascular: S1, S2 audible auscultation with no heaves, lifts, thrills, or murmurs. Pulmonary: Diminished bilateral bases with normal respiratory effort. Abdomen: Abdomen is soft, nontender. Positive bowel sounds. Extremities: There is 3+ pitting bilateral lower extremity edema. Musculoskeletal: Patient moves all extremities. Neurologic: Alert and orient x3. LABORATORY DATA/DIAGNOSTICS: Hemoglobin 8.5, hematocrit 26.4. Iron was 43. Iron saturation of 17, ferritin to 202. Vitamin B12 643. Folate 12.9, sodium 143, potassium 3.3, BUN 34, creatinine 1.6. Transesophageal echocardiogram on 06/11 showed ejection fraction of 55-60% . Left atrium mildly enlarged. Aortic valve leaflets mildly sclerosed. Left atrial appendage had a clot. ASSESSMENT AND PLAN: 1. Iron deficiency anemia. He has had 1 unit of packed red cells. We will proceed with 1 dose of IV iron and continue to monitor. He remains on Eliquis due to a left atrial appendage thrombus. 2. Acute on chronic congestive heart failure secondary to diastolic dysfunction. Cardiology is on board. He is currently on Cardizem and Lasix, 3. Paroxysmal atrial fibrillation/flutter. Currently in sinus rhythm on Cardizem, metoprolol and Eliquis. 4. Chronic obstructive pulmonary disease. Supportive care per primary team. 5. Gastrointestinal prophylaxis with Protonix. Dictated by SALLIE Killian for Eitan Smith MD cc: SALLIE Killian MD M. Neel Roberts, MD MTDD
[2017-07-01 05:17] LABS: HEMATOCRIT 25.5 % (42.0-52.0); HEMOGLOBIN 8.3 g/dL (14.0-18.0); MCH 31.6 PG (27-31); MCHC 32.5 g/dL (33-37); MPV 9.1 FL (7.4-10.4); RBC 2.63 XMIL (4.7-6.1)
[2017-07-01] MEDS: PROTONIX PO SCH ×2 (05:55→06:00)
[2017-07-01] MEDS: HUMULIN 70/30 SUBQ SCH ×3 (05:55→16:30)
[2017-07-01] MEDS: CARDIZEM PO SCH ×3 (05:55→20:07)
[2017-07-01] MEDS: LINZESS PO SCH ×2 (05:55→06:00)
[2017-07-01 06:00] LABS: CALCIUM 8.6 mg/dL (8.8-10.2); POTASSIUM 3.5 mmol/L (3.5-5.1)
[2017-07-01] MEDS: HUMULIN R SUBQ SCH ×4 (06:00→20:08)
--- NOTE | 2017-07-01 08:10 | PROGRESS NOTE ---
DATE: 07/01/2017 SUBJECTIVE: Mr. Monaco has a history of paroxysmal atrial fibrillation and atrial flutter. He has converted back into normal sinus rhythm. His heart rate is well controlled on a combination of Cardizem and metoprolol. He has a history of [id number] congestive heart failure secondary to diastolic dysfunction. He is breathing more comfortably. O2 saturations are ranging from 98%- 100% on 2 L at rest. He still has mild shortness of breath with exertion. He has a history of chronic anemia. He did have heme-positive stools. We did not feel that it was safe to take him off Eliquis at this time as he has a left atrial clot. He was given a unit of blood yesterday. His hemoglobin and hematocrit were 8.3 and 25.5 today. His blood sugars are trending down. Sugars are ranging from 96-218. OBJECTIVE: Temperature 97.6 degrees, pulse 66, respirations 20, BP 127/50. CV: Regular rate and rhythm. Lungs: Distant breath sounds with increased period of expiration. Abdomen soft, nontender, with active bowel sounds. Extremities: 1+ pitting edema bilaterally. ASSESSMENT AND PLAN: 1. Paroxysmal atrial fibrillation and flutter. He has converted back to normal sinus rhythm. We will continue both metoprolol and Cardizem for rate control. We are going to try to hold off on amiodarone due to his underlying pulmonary fibrosis. 2. Chronic iron deficiency anemia. We appreciate Dr. Smith's help who is going to give him an iron infusion. I am going to give him an additional unit of blood today. 3. Type 2 insulin-dependent diabetes mellitus. His blood sugars are trending down but are still a little bit too high. I am going to increase the 70/30 to 25 units subcutaneously b.i.d. cc: Samson Gutierrez MD
[2017-07-01 08:11] LABS: RETIC% 1.7 % (0.8-2.1); RETIC-HE 34.7 PG (28.2-36.6)
[2017-07-01] MEDS: SYMBICORT 160/4.5 MICROGM INHALER INH SCH ×2 (08:11→19:45)
[2017-07-01] MEDS: ELIQUIS PO SCH ×2 (08:29→20:07)
[2017-07-01] MEDS: WELLBUTRIN XL PO SCH ×2 (08:29→20:07)
[2017-07-01] MEDS: FLOMAX PO SCH (08:29)
[2017-07-01] MEDS: ZANTAC PO SCH ×2 (08:29→20:07)
[2017-07-01] MEDS: LASIX IV SCH (08:29)
[2017-07-01] MEDS: ZYLOPRIM PO SCH (08:29)
[2017-07-01] MEDS: PRAVACHOL PO SCH (08:30)
[2017-07-01] MEDS: PREDNISONE PO SCH (08:30)
[2017-07-01] MEDS: PLETAL PO SCH ×2 (08:30→20:07)
[2017-07-01] MEDS: LOPRESSOR PO SCH ×2 (08:30→20:07)
[2017-07-01] MEDS ORDERED: NS 500 ML ONE (09:12)
--- NOTE | 2017-07-01 13:51 | PROGRESS NOTE ---
DATE: 07/01/2017 SUBJECTIVE: Mr. Rosen continues with some dyspnea. There has been no chest pain. He remains in sinus rhythm. OBJECTIVE: Vital Signs: Blood pressure 125/50, heart rate 66 and regular. ECG monitor showing sinus rhythm. Neck: There is no significant jugular venous distention. Chest: Auscultation chest reveals few faint expiratory wheezes. There are no rales. Cardiac Exam: Reveals a regular rate and rhythm without appreciable murmur or gallop. There is no evidence of peripheral edema. LABORATORY DATA: Includes hematocrit 25.5, hemoglobin 8.3. BUN 41, creatinine 1.6. IMPRESSION: 1. Atrial arrhythmias. Patient has converted back to sinus rhythm. Recent GENO reports left atrial appendage thrombus. 2. Recurrent congestive heart failure with normal left ejection fraction and evidence of pulmonary hypertension by Doppler study. Suspect combination of cor pulmonale and diastolic left ventricular failure. 3. Severe chronic obstructive pulmonary disease. 4. Anemia. 5. Hyperlipidemia. RECOMMENDATIONS: 1. Control heart rate with combination of reduced dose metoprolol, digoxin and diltiazem. 2. Anticoagulation as tolerated. No plans for cardioversion in light of recent left atrial appendage thrombus. 3. Reduce Lasix. cc: MD Samson Hubbard MD
[2017-07-01] MEDS: SPIRIVA INH SCH (19:44)
[2017-07-02] MEDS: SPIRIVA INH SCH ×2 (03:23→21:05)
[2017-07-02] MEDS: PROTONIX PO SCH (06:20)
[2017-07-02] MEDS: CARDIZEM PO SCH ×3 (06:20→20:21)
[2017-07-02] MEDS: LINZESS PO SCH (06:20)
[2017-07-02] MEDS: HUMULIN R SUBQ SCH ×4 (06:21→23:00)
[2017-07-02] MEDS: HUMULIN 70/30 SUBQ SCH ×2 (06:21→15:54)
--- NOTE | 2017-07-02 07:37 | PROGRESS NOTE ---
DATE: 07/02/2017 SUBJECTIVE: Mr. Rosen remains in normal sinus rhythm. His heart rate is ranging from 65 to 70. He was admitted with acute respiratory failure with hypoxia secondary to [id number] congestive heart failure secondary to diastolic dysfunction. He is maintaining O2 saturations of 97% to 98% on 2 L of O2 per nasal cannula at rest. He was able to walk approximately 175 feet yesterday with Physical Therapy. He does still have some mild shortness of breath with activity. Blood sugars all are trending down. OBJECTIVE: Vital Signs: Temperature 98 degrees, BP 140/52, pulse 67, respiratory rate 20. CV: Regular rate and rhythm. Lungs: Faint crackles in the bases bilaterally. Abdomen: Soft, nontender, with active bowel sounds. Extremities: One plus pitting edema. ASSESSMENT AND PLAN: 1. Paroxysmal atrial fibrillation and flutter. He remains in normal sinus rhythm. We will continue Eliquis 2.5 mg b.i.d. to reduce the risk of stroke. We will continue digoxin, diltiazem and metoprolol for rate control. We do not want to use Multaq as literature studies suggest increased risk of adverse events in the setting of paroxysmal atrial fibrillation. Because of his underlying chronic obstructive pulmonary disease, we really do not want to try amiodarone. If we are unable to control his rate with medicines alone, we may need to consider a referral to 1 of the electrophysiological physicians in [place] for consideration of arteriovenous enid ablation with pacemaker placement. 2. [id number] congestive heart failure secondary to diastolic dysfunction. We will continue a salt and fluid restricted diet and diuresis with Lasix. We will titrate diltiazem as tolerated to improve cardiac compliance. 3. Type 2 insulin-dependent diabetes mellitus. We will continue 1800 calorie [place] [employer] diet, pattern sugars, Humulin R sliding scale, and I will increase the Humulin 70- 30 to 30 units subcutaneously b.i.d. 4. Anemia of chronic disease. We did transfuse him a unit of blood yesterday. I will recheck a hemoglobin and hematocrit this morning. An erythropoietin level is pending. If his erythropoietin level is low, I believe that he would benefit from Procrit injections to maintain a hemoglobin in excess of 10. cc: Samson Gutierrez MD
[2017-07-02] MEDS: SYMBICORT 160/4.5 MICROGM INHALER INH SCH ×2 (08:00→21:05)
--- NOTE | 2017-07-02 08:39 | Diag Imaging Result Doc PS360 ---
CHEST-2 VIEWS - 07/02/2017 INDICATION: CHF TECHNIQUE: COMPARISON: 06/26/2017 FINDINGS: There is slight worsening in the multilobar infiltrate throughout the right lung. This is most pronounced at the base. Stable cardiomegaly and pulmonary vascular congestion. There are trace pleural effusions similar to prior. Minimal infiltrate at the left lung is stable from prior. IMPRESSION: Worsening indeterminate infiltrates throughout the right lung. Electronically signed by Logan Hoang 07/02/2017 8:37 AM
[2017-07-02] MEDS: ZYLOPRIM PO SCH (08:45)
[2017-07-02] MEDS: FLOMAX PO SCH (08:45)
[2017-07-02] MEDS: PLETAL PO SCH ×2 (08:45→20:21)
[2017-07-02] MEDS: ZANTAC PO SCH ×2 (08:45→20:21)
[2017-07-02] MEDS: ELIQUIS PO SCH ×2 (08:45→20:21)
[2017-07-02] MEDS: WELLBUTRIN XL PO SCH ×2 (08:45→20:21)
[2017-07-02] MEDS: LOPRESSOR PO SCH ×2 (08:45→20:21)
[2017-07-02] MEDS: PREDNISONE PO SCH (08:45)
[2017-07-02] MEDS ORDERED: LASIX IV SCH (09:00)
[2017-07-02 09:03] LABS: MANUAL DIFF NEEDED? NO
[2017-07-02 09:22] LABS: BASO% 0.1 % (0.0-0.8); EOS# 0.15 X1000 (0.0-0.7); EOS% 1.9 % (0.0-10.0); HEMATOCRIT 32.4 % (42.0-52.0); HEMOGLOBIN 10.4 g/dL (14.0-18.0); IMM GRAN# 0.08 X1000 (0.0-0.04); LYMPH# 0.52 X1000 (1.2-3.4); LYMPH% 6.6 % (20.5-51.1); MCH 30.8 PG (27-31); MCHC 32.1 g/dL (33-37); MCV 95.9 FL (81-99); MONO% 17.7 % (1.7-9.3); MPV 8.9 FL (7.4-10.4); NEUT% 72.7 % (42.2-75.2); PLT 332 X1000 (130-400); RBC 3.38 XMIL (4.7-6.1)
[2017-07-02] MEDS: LASIX IV SCH (20:21)
--- NOTE | 2017-07-03 04:13 | PROGRESS NOTE ---
DATE: 07/02/2017 SUBJECTIVE: Mr. Rosen continues without dyspnea on supplemental oxygen per nasal cannula. There has been no chest discomfort. He continues in sinus rhythm. OBJECTIVE: Vital Signs: Blood pressure 119/40, heart rate 77 and regular, oxygen saturation 99% on nasal cannula oxygen at 2 L/minute. Neck: Jugular venous distention cannot be appreciated. Chest: Auscultation of chest reveals coarse breath sounds bilaterally, with somewhat diminished breath sounds. Cardiac: Regular rate and rhythm, without appreciable murmur or gallop. Extremities: 2+ pretibial edema. IMPRESSION: 1. Paroxysmal atrial arrhythmias. Patient has converted back to sinus rhythm. Recent GENO reports left atrial appendage thrombus. 2. Recurrent congestive heart failure, with normal left ventricular ejection fraction and evidence of pulmonary hypertension. Suspect predominance of cor pulmonale now over diastolic left ventricular failure. 3. Severe chronic obstructive pulmonary disease. 4. Anemia. 5. Hyperlipidemia. RECOMMENDATIONS: 1. Continue current cardiovascular regimen unchanged. 2. Anticoagulation as tolerated. 3. Continue Lasix. 4. Suspect patient may very well require home oxygen. cc: MD Samson Hubbard MD
[2017-07-03 05:26] LABS: CALCIUM 8.3 mg/dL (8.8-10.2); POTASSIUM 3.1 mmol/L (3.5-5.1)
[2017-07-03] MEDS: HUMULIN R SUBQ SCH ×4 (06:18→22:36)
[2017-07-03] MEDS ORDERED: INSULIN PEN NEEDLES ONE (06:26)
[2017-07-03] MEDS: HUMULIN 70/30 SUBQ SCH (06:29)
[2017-07-03] MEDS: CARDIZEM PO SCH ×3 (06:30→19:59)
[2017-07-03] MEDS: PROTONIX PO SCH (06:31)
[2017-07-03] MEDS: LINZESS PO SCH (06:31)
[2017-07-03] MEDS: SYMBICORT 160/4.5 MICROGM INHALER INH SCH ×2 (07:42→21:21)
[2017-07-03] MEDS: PRAVACHOL PO SCH (08:03)
[2017-07-03] MEDS: LASIX IV SCH ×2 (08:03→08:43)
[2017-07-03] MEDS: LOPRESSOR PO SCH ×2 (08:03→19:59)
[2017-07-03] MEDS: PLETAL PO SCH ×2 (08:03→19:59)
[2017-07-03] MEDS: ZANTAC PO SCH ×2 (08:03→19:59)
[2017-07-03] MEDS: PREDNISONE PO SCH (08:03)
[2017-07-03] MEDS: WELLBUTRIN XL PO SCH ×2 (08:03→19:59)
[2017-07-03] MEDS: FLOMAX PO SCH (08:03)
[2017-07-03] MEDS: ELIQUIS PO SCH ×2 (08:03→19:59)
[2017-07-03] MEDS: ZYLOPRIM PO SCH (08:04)
[2017-07-03] MEDS: LANOXIN PO SCH (09:05)
[2017-07-03] MEDS ORDERED: KLOR-CON PO ONE (09:06)
--- NOTE | 2017-07-03 09:31 | PROGRESS NOTE ---
DATE: 07/03/2017 SUBJECTIVE: Mr. Rosen has converted back into atrial fibrillation with heart rates ranging from 88 to 118. He denies any chest pain or anginal equivalents. He has been taking metoprolol 25 mg b.i.d. and diltiazem 60 mg every 8 hours. He has a history of acute respiratory failure secondary to acute on chronic congestive heart failure secondary to diastolic dysfunction. His diastolic dysfunction tends to deteriorate with rapid atrial rhythms. He is maintaining O2 saturations of 96% to 97% on 2 L of O2 per nasal cannula. He still has mild dyspnea with exertion. He is making slow progress with physical therapy. He required minimal assist with transfers. He was able to perform full weightbearing ambulation for approximately 100 feet. His blood sugars are trending down, but he has had episodes of hypoglycemia in the early evening. OBJECTIVE: Vital Signs: Temperature 98.7 degrees, pulse 118 and irregular, respiratory rate 20, BP 122/64. CV: Irregularly irregular. Lungs: Crackles in the bases bilaterally. Abdomen: Soft, nontender, with active bowel sounds. Extremities: He has 1+ edema in the lower extremities bilaterally. LABORATORY DATA: Various laboratory studies were obtained. BMP demonstrated the following: Sodium 141, potassium 3.1, chloride 97, BUN 38, creatinine 1.6, and glucose 144. ASSESSMENT AND PLAN: 1. Paroxysmal atrial fibrillation. He has converted back into atrial fibrillation. I will add digoxin 0.125 mg daily, continue metoprolol 25 mg twice daily, and increase the diltiazem to 60 mg every 6 hours. We will continue Eliquis to reduce the risk of stroke. 2. Acute on chronic congestive heart failure secondary to diastolic dysfunction. We will continue a salt and fluid restricted diet, and adjust the calcium channel blockers and beta- blockers to improve cardiac compliance. I will back down on the Lasix to 40 mg intravenously daily. 3. Type 2 insulin-dependent diabetes mellitus. I will continue Novolin 70/30, 30 units in the morning, but reduce the evening dosage to 25 units at night. 4. Physical debility. His insurance company denied coverage for short-term rehab at [facility]. We will consult [facility]. If his insurance company will not cover [facility], we will make arrangements for him to go home with home health. Under Medicare guidelines, he is still not considered independent, and I am fearful that he is at an increased risk for falling, and would benefit from short-term rehab. 5. Hypokalemia. I will give potassium chloride 40 mEq by mouth x1 dose. cc: Samson Gutierrez MD
[2017-07-03] MEDS: COLCRYS PO SCH ×2 (13:09→19:59)
[2017-07-03] MEDS ORDERED: HUMULIN 70/30 SUBQ SCH (16:00)
[2017-07-03] MEDS ORDERED: LASIX IV ONE (16:23)
--- NOTE | 2017-07-03 16:43 | PROGRESS NOTE ---
DATE: 07/03/2017 SUBJECTIVE: The patient denies shortness of breath or chest discomfort. OBJECTIVE: Vital Signs: Blood pressure 111/52, heart rate 79 and irregular with ECG monitor showing atrial fibrillation. Oxygen saturation 97% on 2 L nasal cannula. Neck: Jugular venous distention appears to be present suggesting elevated central venous pressure. Chest: Auscultation of the chest reveals bibasilar inspiratory crackles. Cardiac Exam: Reveals an irregular rate and rhythm without appreciable murmur or gallop. Extremities: Wrapped with compressive bandages. LABORATORY DATA: Laboratory data includes a BUN 38, creatinine 1.6. IMPRESSION: 1. Atrial arrhythmias. Patient back in atrial fibrillation. Recent transesophageal echocardiogram reported. Left atrial appendage thrombus. Rate controlled. 2. Recurrent congestive heart failure with normal left ventricular ejection fraction. The patient has moderate pulmonary hypertension and diastolic left ventricular dysfunction. The patient appears to have reemergence of volume excess. 3. Severe chronic obstructive pulmonary disease. 4. Anemia. 5. Hyperlipidemia. RECOMMENDATIONS: 1. Supplement Lasix with additional intravenous Lasix this evening. 2. Continue strategy of rate control and anticoagulation for the present in light of patient's left atrial appendage thrombus. cc: MD Samson Hubbard MD
[2017-07-03] MEDS: SPIRIVA INH SCH (21:22)
[2017-07-04] MEDS: CARDIZEM PO SCH ×4 (02:49→19:49)
[2017-07-04] MEDS: HUMULIN R SUBQ SCH ×4 (06:15→21:56)
[2017-07-04] MEDS: PROTONIX PO SCH (06:24)
[2017-07-04] MEDS: LINZESS PO SCH (06:24)
[2017-07-04] MEDS ORDERED: HUMULIN 70/30 SUBQ SCH (07:00)
[2017-07-04] MEDS: PLETAL PO SCH ×3 (08:52→21:56)
[2017-07-04] MEDS: COLCRYS PO SCH ×3 (08:52→21:56)
[2017-07-04] MEDS: LASIX IV SCH (08:52)
[2017-07-04] MEDS: WELLBUTRIN XL PO SCH ×3 (08:52→21:57)
[2017-07-04] MEDS: FLOMAX PO SCH (08:53)
[2017-07-04] MEDS: LANOXIN PO SCH (08:53)
[2017-07-04] MEDS: ZYLOPRIM PO SCH (08:53)
[2017-07-04] MEDS: LOPRESSOR PO SCH ×3 (08:54→21:57)
[2017-07-04] MEDS: ZANTAC PO SCH ×3 (08:54→21:57)
[2017-07-04] MEDS: ELIQUIS PO SCH ×3 (08:54→21:56)
[2017-07-04] MEDS: PREDNISONE PO SCH (08:54)
[2017-07-04] MEDS: SYMBICORT 160/4.5 MICROGM INHALER INH SCH ×2 (10:01→19:10)
--- NOTE | 2017-07-04 14:02 | PROGRESS NOTE ---
DATE: 07/04/2017 He has a history of paroxysmal atrial fibrillation. He remains in normal sinus rhythm. Heart rate is ranging from 75 to 87. He is breathing comfortably at rest but still has mild shortness of breath with ambulating in the halls. Blood pressure is stable. He has had several episodes of hypoglycemia. Temperature 98.6 degrees pulse 77, respirations 18, BP 111/53. CV: Regular rate and rhythm. Lungs: Scattered rhonchi with faint crackles in the bases. Abdomen: Soft, nontender, with active bowel sounds. Extremities: Trace edema. ASSESSMENT AND PLAN: 1. Acute respiratory failure with hypoxia secondary to acute on chronic congestive heart failure secondary to diastolic dysfunction. We will continue a salt and fluid restricted diet and aggressively diurese him with Lasix. I will recheck a PA and lateral chest x-ray today. 2. Paroxysmal atrial fibrillation. He remains in normal sinus rhythm. We will continue digoxin, Toprol and diltiazem for rate control. We will continue Eliquis to reduce the risk of stroke. 3. Type 2 insulin-dependent diabetes mellitus. He has had frequent episodes of hypoglycemia. I will reduce the Humulin 70/30 to 25 units in the morning, 20 units at night. 4. Physical debility. We will continue physical therapy and as he is still too weak to go home safely, coverage for short-term rehab at 1 of the local nursing homes as well as [facility] have been denied by his insurance. cc: Samson Gutierrez MD
[2017-07-04] MEDS ORDERED: INSULIN PEN NEEDLES ONE (16:50)
[2017-07-04] MEDS: HUMULIN 70/30 SUBQ SCH (16:52)
[2017-07-04] MEDS ORDERED: LASIX IV ONE (17:01)
[2017-07-04] MEDS ORDERED: KLOR-CON PO ONE (17:02)
--- NOTE | 2017-07-04 17:25 | PROGRESS NOTE ---
DATE: 07/04/2017 SUBJECTIVE: The patient denies shortness of breath or chest discomfort. Lying flat in bed on supplemental oxygen per nasal cannula. Vital Signs: Blood pressure 111/53, heart rate 77 and irregular with ECG monitor currently showing atrial fibrillation. Oxygen saturation 98% on nasal cannula oxygen at 2 L/minute. Neck: Jugular venous distention present suggesting mild elevation in central venous pressure. Chest: Auscultation of the chest reveals a few inspiratory crackles in the bases at the side but clearly sounds better following recent increased diuresis. Cardiac exam: Reveals an irregular rate and rhythm without appreciable murmur or gallop. Extremities: Are wrapped with compressive dressings. LABORATORY DATA: Has not been repeated since yesterday. IMPRESSION: 1. Paroxysmal atrial arrhythmias. Patient currently back in atrial fibrillation with controlled rate. Recent transesophageal echocardiography reported left atrial appendage thrombus. 2. Recurrent congestive heart failure with normal left ventricular ejection fraction. Patient has diastolic left ventricular dysfunction and cor pulmonale. 3. COPD, severe. 4. Anemia. 5. Hyperlipidemia. RECOMMENDATIONS: 1. Additional intravenous Lasix this evening to diurese further given clinical response thus far. Pulmonary congestion appears to be improving with diuresis. 2. Continue strategy of rate control and anticoagulation as tolerated for the present in light of patient's left atrial appendage thrombus. cc: MD Samson Hubbard MD
[2017-07-04] MEDS: SPIRIVA INH SCH (19:10)
[2017-07-05] MEDS: CARDIZEM PO SCH ×4 (03:10→20:09)
[2017-07-05] MEDS: LINZESS PO SCH (06:25)
[2017-07-05] MEDS: PROTONIX PO SCH (06:25)
[2017-07-05] MEDS: HUMULIN 70/30 SUBQ SCH ×2 (06:25→17:13)
[2017-07-05] MEDS: HUMULIN R SUBQ SCH ×4 (06:26→20:10)
[2017-07-05] MEDS: COLCRYS PO SCH ×2 (08:13→20:09)
[2017-07-05] MEDS: PREDNISONE PO SCH (08:13)
[2017-07-05] MEDS: LANOXIN PO SCH (08:13)
[2017-07-05] MEDS: ZYLOPRIM PO SCH (08:13)
[2017-07-05] MEDS: WELLBUTRIN XL PO SCH ×2 (08:13→20:09)
[2017-07-05] MEDS: LASIX IV SCH (08:13)
[2017-07-05] MEDS: LOPRESSOR PO SCH ×2 (08:14→20:09)
[2017-07-05] MEDS: ELIQUIS PO SCH ×2 (08:14→20:09)
[2017-07-05] MEDS: PRAVACHOL PO SCH (08:14)
[2017-07-05] MEDS: FLOMAX PO SCH (08:14)
[2017-07-05] MEDS: PLETAL PO SCH ×2 (08:14→20:09)
[2017-07-05] MEDS: ZANTAC PO SCH ×2 (08:14→20:09)
[2017-07-05] MEDS: SYMBICORT 160/4.5 MICROGM INHALER INH SCH ×2 (08:24→19:14)
[2017-07-05 08:25] LABS: CALCIUM 8.6 mg/dL (8.8-10.2); POTASSIUM 3.7 mmol/L (3.5-5.1)
--- NOTE | 2017-07-05 10:12 | PROGRESS NOTE ---
DATE: 07/05/2017 SUBJECTIVE: Mr. Rosen has a history of paroxysmal atrial fibrillation. He has converted back into atrial fibrillation. His heart rate is well controlled, ranging from 65 to 80. He is currently on a combination of diltiazem, metoprolol, and digoxin. He is maintaining good O2 sats of 98% on 2 L of O2 at rest. He still has mild shortness of breath with activities of daily living. He still is weak but is ambulating farther distances in the vasquez. Blood sugars are trending down. Blood sugars are ranging from 118 to 180. He has had no further episodes of hypoglycemia. OBJECTIVE: Vital signs: He is afebrile, pulse 73, respirations 16, BP 110/50. CV: Irregularly irregular. Lungs: Diminished breath sounds with increased period of expiration and fine crackles bilaterally. Abdomen: Soft, nontender, with active bowel sounds. Extremities: Trace ankle edema. ASSESSMENT AND PLAN: 1. Acute on chronic congestive heart failure secondary to diastolic dysfunction. We will continue salt- and fluid-restricted diet and aggressively diurese him with Lasix. We will continue to increase his activity. 2. Paroxysmal atrial fibrillation. He remains in atrial fibrillation. His heart rate is well controlled on digoxin, metoprolol, and Cardizem. We will continue Eliquis to reduce the risk of stroke. 3. Physical debility. He still is very weak. Unfortunately, his insurance would not cover subacute rehab at [facility] or short-term rehab at [facility]. We will continue physical therapy and arrange for home health at the time of discharge. cc: Samson Gutierrez MD
[2017-07-06] MEDS: CARDIZEM PO SCH ×4 (02:09→20:39)
[2017-07-06] MEDS: PROTONIX PO SCH (06:28)
[2017-07-06] MEDS: LINZESS PO SCH (06:28)
[2017-07-06] MEDS: HUMULIN 70/30 SUBQ SCH ×2 (06:40→17:01)
[2017-07-06] MEDS: HUMULIN R SUBQ SCH ×4 (06:40→20:40)
[2017-07-06] MEDS: COLCRYS PO SCH ×2 (08:35→20:39)
[2017-07-06] MEDS: FLOMAX PO SCH (08:35)
[2017-07-06] MEDS: LASIX IV SCH (08:35)
[2017-07-06] MEDS: PREDNISONE PO SCH (08:35)
[2017-07-06] MEDS: PLETAL PO SCH ×2 (08:35→20:39)
[2017-07-06] MEDS: ZANTAC PO SCH ×2 (08:35→20:39)
[2017-07-06] MEDS: ZYLOPRIM PO SCH (08:35)
[2017-07-06] MEDS: ELIQUIS PO SCH ×2 (08:35→20:39)
[2017-07-06] MEDS: WELLBUTRIN XL PO SCH ×2 (08:35→20:39)
[2017-07-06] MEDS: LANOXIN PO SCH (08:35)
[2017-07-06] MEDS: LOPRESSOR PO SCH ×2 (08:35→20:39)
--- NOTE | 2017-07-06 08:56 | PROGRESS NOTE ---
DATE: 07/06/2017 SUBJECTIVE: Mr. Rosen remains in atrial fibrillation. His heart rate is well controlled and ranges from 64-73. He is breathing comfortably at rest but continues to have mild shortness of breath with ambulation in the halls. His blood pressure is stable. PHYSICAL EXAMINATION: Vital Signs: Temperature 97.3 degrees pulse 73, BP 136/64. CV: Irregularly irregular. Lungs: Faint crackles in the bases bilaterally. Abdomen: Soft, nontender, with active bowel sounds. Extremities: Trace ankle edema. ASSESSMENT AND PLAN: 1. Paroxysmal atrial fibrillation. He remains in atrial fibrillation. We will continue Eliquis 2.5 mg daily to reduce the risk of stroke. His heart rate is well controlled on a combination of diltiazem, metoprolol, and digoxin. 2. Acute on chronic congestive heart failure secondary to diastolic dysfunction. We will continue a salt and fluid restricted diet, and aggressive diuresis with Lasix. We will continue to titrate upward on the calcium channel blockers as tolerated. 3. Type 2 insulin-dependent diabetes mellitus. His blood sugars are looking much better. We will continue an 1800 calorie, [place] [employer] diet, and his current regimen of insulin. 4. Physical debility. He continues to make slow but steady progress with physical therapy. Physical therapy is scheduled to work with him today. I still feel that he is too weak to go home independently. Unfortunately, he does not have any coverage for short-term or subacute rehab. I am hoping that if he does well with physical therapy today, that we will be able to discharge him tomorrow with home health. cc: Samson Gutierrez MD
[2017-07-06] MEDS: SYMBICORT 160/4.5 MICROGM INHALER INH SCH (19:21)
[2017-07-06] MEDS: SPIRIVA INH SCH (19:24)
[2017-07-07] MEDS: CARDIZEM PO SCH ×2 (01:53→10:20)
[2017-07-07] MEDS: PROTONIX PO SCH (06:27)
[2017-07-07] MEDS: LINZESS PO SCH (06:27)
[2017-07-07] MEDS: HUMULIN 70/30 SUBQ SCH (06:27)
[2017-07-07] MEDS: HUMULIN R SUBQ SCH ×2 (07:17→12:30)
[2017-07-07] MEDS: SYMBICORT 160/4.5 MICROGM INHALER INH SCH (08:08)
[2017-07-07] MEDS: LASIX IV SCH (10:19)
[2017-07-07] MEDS: ELIQUIS PO SCH (10:20)
[2017-07-07] MEDS: ZANTAC PO SCH (10:20)
[2017-07-07] MEDS: LOPRESSOR PO SCH (10:20)
[2017-07-07] MEDS: LANOXIN PO SCH (10:20)
[2017-07-07] MEDS: PLETAL PO SCH (10:20)
[2017-07-07] MEDS: ZYLOPRIM PO SCH (10:20)
[2017-07-07] MEDS: FLOMAX PO SCH (10:21)
[2017-07-07] MEDS: PREDNISONE PO SCH (10:21)
[2017-07-07] MEDS: WELLBUTRIN XL PO SCH (10:21)
[2017-07-07] MEDS: PRAVACHOL PO SCH (10:21)
[2017-07-07] MEDS: COLCRYS PO SCH (10:21)
[2017-07-07 10:56] VITALS: BP 146/65
[2017-07-07] MEDS ORDERED: INSULIN PEN NEEDLES ONE (12:38)
--- NOTE | 2017-08-19 05:09 | DISCHARGE SUMMARY ---
ADMISSION DATE: 06/25/2017 DISCHARGE DATE: 07/07/2017 DISCHARGE DIAGNOSES: 1. Paroxysmal atrial fibrillation. 2. Acute on chronic congestive heart failure secondary to diastolic dysfunction. 3. Acute respiratory failure secondary to acute on chronic congestive heart failure secondary to diastolic dysfunction. 4. Type 2 insulin-dependent diabetes mellitus. 5. Physical debility. 6. Intermittent claudication secondary to peripheral arterial disease. 7. Chronic renal insufficiency. DISCHARGE INSTRUCTIONS: 1. Return to clinic in 1 week to see me, Dr. Bright Gutierrez, in anticipation of a transition of care visit. 2. Activity as tolerated. 3. An 1800 calorie, ADA diet. 4. Medications: Eliquis 2.5 mg b.i.d., Symbicort 160/4.5 two puffs b.i.d., digoxin 125 mcg daily, diltiazem 60 mg q.6 hours, Humulin 70/30 with 25 units in the morning and 20 units at night, pantoprazole 40 mg daily, prednisone 10 mg daily, Zantac 150 mg b.i.d., Spiriva 1 inhalation daily, Wellbutrin 150 mg b.i.d., Linzess 145 mcg daily, Pletal 100 mg b.i.d., allopurinol 300 mg daily, Flomax 0.4 mg daily, pravastatin 20 mg at bedtime, Lasix 40 mg daily and may take a 2nd dose if he gains 1-2 pounds in 24 hours, KCL 20 mEq daily, metoprolol 50 mg daily. PHYSICAL EXAMINATION: General: This is a chronically ill-appearing, 81-year-old, gentleman in no apparent distress. Vital Signs: He is afebrile. Vital signs are stable. CV: Irregularly irregular. Lungs: Clear. Abdomen: Soft, nontender, with active bowel sounds. HOSPITAL COURSE: Mr. Pranav Rosen has a history of chronic congestive heart failure secondary to diastolic congestive heart failure. He was admitted to [facility] with acute respiratory failure with hypoxia secondary to acute on chronic congestive heart failure secondary to diastolic dysfunction. We placed him on a salt and fluid restricted diet, and aggressively diuresed him with Lasix. We titrated upward on the beta-blockers and diltiazem to improve cardiac compliance. We added Zaroxolyn prior to the morning dosage of Lasix. We continued him on supplemental O2. With aggressive fluid restriction, diuresis with Lasix, and titration of beta blockers and calcium channel blockers, we will able to improve his condition clinically. We were able to wean him off oxygen. He was maintaining O2 saturations in the mid 90s off oxygen, both at rest and with activity. He will continue diltiazem and metoprolol to improve cardiac compliance. I asked him to weigh daily. He may take an additional Lasix if he gains 2-3 pounds in a 24 hour period of time. He does have a history of paroxysmal atrial fibrillation. He converted back to atrial fibrillation. We adjusted his medicines for rate control. A previous GENO demonstrated a left atrial appendage thrombus. He was not felt to be a candidate for cardioversion at this time. We used Cardizem and metoprolol for rate control. He was maintained on Eliquis. We will plan to check a GENO as an outpatient in 2 or 3 months to see if the thrombus has resolved on the Eliquis. If the thrombus has resolved and he remains in atrial fibrillation, we felt that he would be a candidate for cardioversion and possible ablation therapy. 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 We started Linzess 145 mcg daily. He has a history of type 2 insulin-dependent diabetes mellitus. We placed him on patterned sugars, Humulin R sliding scale, and a regular, and adjusted the dosage of his insulin. At home, I have asked him to check his sugars twice daily and record those readings. We will continue the 70/30 at 25 units in the morning and 20 units at night. Having reached maximum hospital benefit, the patient was discharged in stable condition. cc: Samson Gutierrez MD
== END 2017-07-07 13:20 | disposition home health service (06) ==
LOC: ED 05:37 → EDIPHOLD 09:01 → 3S 14:41
PROVIDERS: ADMIT Internal Medicine; ATTEND Internal Medicine